=== PATIENT | male | born 2005 | race Caucasian/White ===

== ENCOUNTER 2025-06-26 16:28 | Inpatient (IN) ==
--- NOTE | 2025-06-26 16:43 | Emergency Department Note ---
Impression & Plan Hemoptysis, Cavitary lesion of lung ED Provider Note CHIEF COMPLAINT: Cough, hemoptysis, recent pneumonia HISTORY OF PRESENTING ILLNESS: This 20-year-old male patient presents to the emergency department for evaluation of a continued cough as well as coughing up blood. The patient states that he has been coughing for a while. He was initially diagnosed with the flu a couple weeks ago. The patient was then diagnosed with pneumonia 7 days ago and has been taking doxycycline. The patient states that he was only given a 7 day course of Doxycycline. The patient states that he was getting better on the Doxycycline until yesterday when the cough and mucous got worse again. The patient states that he is now coughing up bright red blood. Initially it was just a small amount in his mucus, but now it is more straight blood when he coughs. The patient states that he feels like the mucous is coming more from his lungs rather than his throat. The patient saw [facility] today because he was having continued coughing as well as blood in his mucus and was referred to the ER for further evaluation. He denies chest pain or SOB other than when he coughs. He states that he has still been pretty tired. He denies any fevers currently. Childhood immunizations are up to date. Two months ago he flew to and from [place] for [address] Denies any personal history of blood clots or bleeding disorders. Denies any family history of blood clots or bleeding disorders. Denies any hormonal medication use. Denies leg/calf pain or swelling. The patient lived in [place] for 15 years before coming back to the [facility] and living in [place]. He then lived in [place] for 2 years prior to coming to [facility] again. The patient denies previous history of TB. He is unsure if he has ever been tested for TB. He is unsure if anyone around him has ever had TB before. REVIEW OF SYSTEMS: See HPI for pertinent positives and pertinent negatives. ALLERGIES: NKDA MEDICATIONS: Finasteride, Minoxidil PAST MEDICAL HISTORY: Hair loss PHYSICAL EXAM: Vital Signs: Vitals are noted on the nurse's note and reviewed by myself. GENERAL: Non toxic in appearance and in no acute distress. SKIN: Capillary reflex less than 2 seconds. HEAD: Normocephalic, atraumatic. EARS: Bilateral external auditory canals clear without tragus tenderness. Bilateral tympanic membranes pearly jernigna without erythema or effusion. No mastoid tenderness bilaterally. EYES: Pupils equal round and reactive to light and accommodation. Conjunctivae without injection, sclerae without icterus. Extraocular movements intact. NOSE: Patent, turbinates inflamed with no discharge. No sinus tenderness. MOUTH: Mucous membranes moist. Airway patent, uvula midline. Pharynx is not erythematous and not edematous without exudate. Pharynx without postnasal drip. There is no blood in the posterior pharynx. No irritation of the posterior pharynx. No evidence for peritonsillar abscess. NECK: Supple without nuchal rigidity. No significant lymphadenopathy. HEART: Regular rate and rhythm without murmurs gallops or rubs. LUNGS: Clear to auscultation bilaterally without wheezes, rales or rhonchi. No accessory muscle use or retractions. ABDOMEN: Positive bowel sounds x 4. Normal tympanic percussion. Soft, nontender to palpation. No masses or hepatosplenomegaly. No guarding, rigidity, or rebound tenderness. No CVA tenderness. No focal RLQ or LLQ tenderness. NEURO: Patient was alert and oriented. DIFFERENTIAL DIAGNOSIS: Differential diagnosis includes PE, viral syndrome, RSV, Influenza, COVID, strep throat, pharyngitis/tonsillitis, mononucleosis, retropharyngeal abscess, peritonsillar abscess, otitis media, otitis externa, sinusitis, bronchitis, pneumonia, TB, fungal infection, as well as other pathologies. ED COURSE AND MEDICAL DECISION MAKING: MEDICATIONS GIVEN: 1 L normal saline solution bolus. MONITOR: Continuous flour distributor: Order was placed for continuous flour distributor. Patient was placed on the flour distributor and continuous pulse ox. Patient was noted to be in normal sinus rhythm at an initial rate of 80 bpm per my interpretation. INTERPRETATION OF LABS: I interpreted the labs with full lab results as below in the lab section of this note. Laboratory results pertinent to the emergent complaint are discussed in the MDM section below. The patient was advised to follow up with their PCP and/or specialist(s) for further outpatient monitoring and management of any abnormal results. INTERPRETATION OF IMAGING: Imaging studies were interpreted by myself and read by radiology as per the imaging section of this note. The patient was advised to follow up with their PCP and/or specialist(s) for further outpatient management of any non-emergent abnormal findings. CTA of the chest with IV contrast shows no evidence for PE. There is a large area of heterogeneous and nodular opacification in the right upper lobe with multiple areas of cavitation present and hilar adenopathy. Pulmonary consultation is suggested to further assess for infectious and inflammatory entities. CHRONIC MEDICAL/SOCIAL CONDITIONS AFFECTING CARE: Recent travel to and from [place] as well as history of residency in [place]. CONSULTATIONS: Dr. Rodriguez of pulmonology. On-call hospitalist. MDM SUMMARY: The patient was seen during a time of extreme volume and extreme acuity. The patient was initially evaluated in a sub-waiting room and then re-evaluated once they were taken back to an exam room. The patient states that he has been coughing for a while, but not sure exactly how long. He states that he was first diagnosed with the flu a couple weeks ago and then diagnosed with pneumonia 1 week ago. He was started on a 7-day course of doxycycline by [facility]. Symptoms initially improved, but now the cough and mucus is getting worse and he is now coughing up bright red blood. The patient did have a recent flight to and from [place] that was approximately [address] The patient has also lived in [place] periodically throughout his life. An IV lock was placed and labs were drawn. The patient was given 1 L normal saline solution bolus. The patient declined any additional medication for his symptoms while in the ER. White blood cell count normal at 8.33. Hemoglobin low at 11.7. Platelet count normal at 325. INR elevated at 1.2, PT elevated 12.1, and APTT elevated at 32. CMP was normal. High-sensitivity troponin normal. CTA of the chest with IV contrast shows no evidence for PE. There is a large area of heterogeneous and nodular opacification in the right upper lobe with multiple areas of cavitation present and hilar adenopathy. Pulmonary consultation is suggested to further assess for infectious and inflammatory entities. As soon as the results of the CT scan were received, I spoke with the charge nurse and the patient was taken to a negative pressure room and isolated. Isolation protocols were followed from that point on. Unfortunately, the patient had been in the Sub-waiting room with another patient. The charge nurse was made aware of the name of the patient in the Sub-waiting room for tracking if the patient does come back positive for TB or other communicable disease that requires contact tracing. I spoke with Dr. Rodriguez of pulmonology. She was concerned for tuberculosis as a cause of his symptoms given the CT scan findings, hemoptysis, and residency/travel in [place]. She recommended a QuantiFERON gold level, sputum acid-fast stain, sputum culture, and respiratory BioFire. She also recommended the patient be admitted by medicine for further workup of other possible etiologies, likely infectious disease consult, and treatment if he is positive for TB. I spoke with the patient's mother via phone at the patient's request. I educated both the patient and his mother about the workup findings and the concern for TB or other infectious etiology of his symptoms. I recommended admission for appropriate management and workup of his symptoms. The patient and his mother were agreeable to admission. I spoke with the on-call hospitalist who agreed to admit the patient for further evaluation and treatment. Please refer to their dictation for further details. The patient's care was transferred in stable condition. DIAGNOSIS: Hemoptysis Multiple areas of cavitation on CT scan Past Med/Surg History Problem List (Updated 06/27/25 @ 01:33 by Summer Hardin PA-C) Cavitary lesion of lung (Acute) Hemoptysis (Acute) Social History Smoking Status: Never smoker Hx Alcohol Use: No Hx Substance Use: No Preferred Language: Grenadian Communication Ability: Effective Plumber Required: No Beliefs That Will Affect Care: None Current Living Situation: Alone Feels Safe at Home: Yes Assistive Devices: None Allergies Allergies Allergy/AdvReac Type Severity Reaction Status Date / Time No Known Allergies Allergy Verified 06/26/25 16:52 Home Meds Home Medications Medication Instructions Recorded Confirmed finasteride 1 mg tablet 0 mg PO DIRECTED 06/26/25 06/26/25 minoxidil 2.5 mg tablet 0 mg PO DIRECTED 06/26/25 06/26/25 Results & Data (ED) Vital Signs Vital Signs - 24 hr 06/26/25 16:36 06/26/25 19:42 06/26/25 19:42 Temperature 36.3 C L Temperature Source Oral Pulse Rate 90 78 Pulse Rate [Right Finger] 78 Respiratory Rate 18 20 Respiratory Effort / Characteristics Non-Labored Spontaneous Non-Labored Spontaneous Respiratory Depth Normal Respiratory Pattern Regular Blood Pressure 110/62 Blood Pressure Mean 78 Pulse Oximetry 96 100 100 Oxygen Delivery Method Room Air Room Air Room Air Sepsis Recent Fever Within 48 Hours No Sepsis New/Unexplained Change in Mental Status N/A Sepsis Action Taken by Nursing No Action Required Laboratory Data 06/26/25 17:09 06/26/25 17:09 Lab Results 06/26/25 Range/Units 17:09 WBC 8.33 (4.8-10.8) K/ul RBC 4.35 L (4.70-6.10) M/uL Hgb 11.7 L (14.0-18.0) g/dl Hct 36.7 L (42.0-52.0) % MCV 84.4 (80.0-100.0) fL MCH 26.9 (25.0-34.0) pg MCHC 31.9 L (32.0-36.0) g/dL RDW Std Deviation 38.0 (36.4-46.3) fL RDW Coeff of Tiffany 12.4 (11.5-14.5) % Plt Count 325 (130-400) K/uL MPV 10.3 (9.4-12.4) fL Immature Gran % (Auto) 0.4 % Neut % (Auto) 64.3 % Lymph % (Auto) 19.4 % Tift % (Auto) 12.7 % Eos % (Auto) 2.8 % Baso % (Auto) 0.4 % Neut # (Auto) 5.36 (1.40-6.50) K/uL Lymph # (Auto) 1.62 (1.20-3.40) K/uL Tift # (Auto) 1.06 H (0.11-0.59) K/uL Eos # (Auto) 0.23 (0.00-0.50) K/uL Baso # (Auto) 0.03 (0.00-0.20) K/uL Immature Gran # (Auto) 0.03 (0.01-0.20) K/uL PT 12.1 H (9.0-12.0) Seconds INR 1.2 H (0.9-1.1) APTT 32 H (21-31) Seconds PTT Ratio 1.2 Sodium 139 (136-145) mmol/L Potassium 3.9 (3.5-5.1) mmol/L Chloride 103 (98-107) mmol/L Carbon Dioxide 30 (21-32) mmol/L Anion Gap 6 (3-11) BUN 9 (6-23) mg/dl Creatinine 0.78 (0.6-1.4) mg/dl Est Cr Clr Drug Dosing 165.9 ml/min eGFR 130.12 BUN/Creatinine Ratio 11.5 (10-20) Glucose 94 (70-99(Fasting)) mg/dl Calcium 9.2 (8.6-10.3) mg/dl Total Bilirubin 0.5 (0.2-1.0) mg/dl AST 21 (13-39) U/L ALT 33 (7-52) U/L Alkaline Phosphatase 88 (34-104) U/L Troponin I High Sens 2.6 (0-20) pg/ml Total Protein 7.7 (6.0-8.3) gm/dl Albumin 3.8 (3.4-5.0) gm/dl Globulin 3.9 (2.5-4.0) gm/dl Albumin/Globulin Ratio 1.0 (0.9-2) Administered Medications Acetaminophen (Acetaminophen 325 Mg Tab) 650 mg PO Q4H PRN PRN Reason: Pain or Fever Stop: 07/27/25 00:01 Last Admin: 06/27/25 00:37 Dose: 650 mg Documented By: LINDA Discontinued Medications Sodium Chloride (Nss) 1,000 mls @ 999 mls/hr IV .Q1H1M ONE Stop: 06/26/25 17:52 Last Infusion: 06/26/25 18:29 Dose: Infused Documented By: Admin: 06/26/25 17:11 Dose: 999 mls/hr Documented By: AURELIA Piperacillin Sod/Tazobactam Sod (Zosyn) 4.5 gm in 100 mls @ 200 mls/hr IV NOW ONE; Protocol Stop: 06/26/25 20:48 Last Infusion: 06/26/25 22:26 Dose: Infused Documented By: Admin: 06/26/25 21:46 Dose: 200 mls/hr Documented By: GENO Vancomycin HCl 1,500 mg/ (Sodium Chloride) 530 mls @ 200 mls/hr IV NOW ONE Stop: 06/26/25 22:57 Last Admin: 06/26/25 22:26 Dose: 200 mls/hr Documented By: GENO Azithromycin (Zithromax) 500 mg in 255 mls @ 127.5 mls/hr IV NOW ONE Stop: 06/26/25 22:21 Last Infusion: 06/27/25 00:39 Dose: Infused Documented By: Admin: 06/26/25 22:26 Dose: 127.5 mls/hr Documented By: GENO Ioversol (Optiray 320 125ml) 119 ml IV ONCE ONE Stop: 06/26/25 18:02 Last Admin: 06/26/25 18:02 Dose: 119 ml Documented By: LARISSA Imaging Data Radiologist's Impression: Chest CTA 06/26/25 16:52 EXAMINATION: CT angio chest PE protocol CLINICAL HISTORY: Cough, hemoptysis, PE risk factors, recent pneumonia PRIORS: None TECHNIQUE: Contiguous axial images were obtained through the chest with the use of intravenous contrast. Sagittal and coronal reformations are supplied. FINDINGS: The pulmonary arteries are normal in size and well opacified. No central or peripheral pulmonary embolism identified. Large area of patchy and nodular opacification present throughout the right upper lung, centrally and extending to the periphery. Multiple areas of cavitation are present, for example image 94, series 3 measuring 2.3 cm. No fluid or soft tissue within the calcification. Scattered air bronchograms noted throughout the opacification. The right lung apex is spared. Right middle and right lower lobes are unremarkable. Left lung is normally expanded. Right hilar adenopathy is present. Heart size is normal. No pleural or pericardial effusion. Trachea and mainstem bronchi are patent. Thyroid normal in size. Upper abdomen unremarkable. No acute osseous abnormality. IMPRESSION: 1. Large area of heterogeneous and nodular opacification in the right upper lobe with multiple areas of cavitation present and hilar adenopathy. Pulmonary consultation is suggested to further assess for infectious and inflammatory entities. 2. No pulmonary embolism. ACT 112: Positive. There are findings on this examination that require communication between the performing entity and the patient following Patient Test Result Information Act ([place] ACT 112) guidelines. Electronically signed by Angelica Hannon 06-26-2025 6:25 PM Discharge Plan Visit Data Chief Complaint: Illness Stated Complaint: COUGHING MUCUS, BLOOD, PNEUMONIA ED Provider: Diego Marrero ED Midlevel Provider: Summer Hardin Discharge Problem: Hemoptysis, Cavitary lesion of lung Patient Disposition: Admitted As Inpatient Condition: Fair Discharge Instructions Interventions: ED Discharge Assessment Last Done: 06/26/25 23:42
[2025-06-26] MEDS: SODIUM CHLORIDE 0.9% 1,000 ML IV ONE (17:11)
[2025-06-26 17:24] LABS: Hematocrit (blood only) 36.7 % (42.0-52.0); Hemoglobin 11.7 g/dl (14.0-18.0); Immature Granulocytes # (auto) 0.03 K/uL (0.01-0.20); Immature Granulocytes % (auto) 0.4 %; Mean Corpuscular Hemoglobin 26.9 pg (25.0-34.0); Mean Corpuscular Volume 84.4 fL (80.0-100.0); Platelet Count 325 K/uL (130-400); RDW Standard Deviation 38.0 fL (36.4-46.3); Red Blood Count 4.35 M/uL (4.70-6.10); White Blood Count 8.33 K/ul (4.8-10.8)
[2025-06-26 17:44] LABS: Alanine Aminotransferase 33.0 U/L (7-52); Albumin Globulin Ratio 1.0 (0.9-2); Albumin Level 3.8 gm/dl (3.4-5.0); Alkaline Phosphatase 88.0 U/L (34-104); Anion Gap 6.0 (3-11); Bilirubin,Total 0.5 mg/dl (0.2-1.0); Blood Urea Nitrogen 9.0 mg/dl (6-23); Calcium 9.2 mg/dl (8.6-10.3); Carbon Dioxide 30.0 mmol/L (21-32); Chloride 103.0 mmol/L (98-107); Creatinine Clr Calc Pharmacy 165.9 ml/min; Globulin 3.9 gm/dl (2.5-4.0); Glucose 94.0 mg/dl (70-99(Fasting)); Potassium 3.9 mmol/L (3.5-5.1); Sodium 139.0 mmol/L (136-145); Total Protein 7.7 gm/dl (6.0-8.3)
[2025-06-26 17:53] LABS: INR 1.2 (0.9-1.1); Partial Thromboplastin Time 32 Seconds (21-31); Prothrombin Time 12.1 Seconds (9.0-12.0)
[2025-06-26] MEDS: OPTIRAY 320 125ml IV ONE (18:02)
--- NOTE | 2025-06-26 18:26 | CT Scan Report ---
EXAMINATION: CT angio chest PE protocol CLINICAL HISTORY: Cough, hemoptysis, PE risk factors, recent pneumonia PRIORS: None TECHNIQUE: Contiguous axial images were obtained through the chest with the use of intravenous contrast. Sagittal and coronal reformations are supplied. FINDINGS: The pulmonary arteries are normal in size and well opacified. No central or peripheral pulmonary embolism identified. Large area of patchy and nodular opacification present throughout the right upper lung, centrally and extending to the periphery. Multiple areas of cavitation are present, for example image 94, series 3 measuring 2.3 cm. No fluid or soft tissue within the calcification. Scattered air bronchograms noted throughout the opacification. The right lung apex is spared. Right middle and right lower lobes are unremarkable. Left lung is normally expanded. Right hilar adenopathy is present. Heart size is normal. No pleural or pericardial effusion. Trachea and mainstem bronchi are patent. Thyroid normal in size. Upper abdomen unremarkable. No acute osseous abnormality. IMPRESSION: 1. Large area of heterogeneous and nodular opacification in the right upper lobe with multiple areas of cavitation present and hilar adenopathy. Pulmonary consultation is suggested to further assess for infectious and inflammatory entities. 2. No pulmonary embolism. ACT 112: Positive. There are findings on this examination that require communication between the performing entity and the patient following Patient Test Result Information Act ([place] ACT 112) guidelines. Electronically signed by Angelica Hannon 06-26-2025 6:25 PM
[2025-06-26] MEDS ORDERED: VANCOMYCIN CONSULT ACTIVE PRN (20:19)
--- NOTE | 2025-06-26 20:26 | History & Physical Report ---
Date of Service June 26, 2025 Assessment & Plan (1) Hemoptysis: Dilcia Kay is a 20 y/o male with no past significant medical history that presented to the ED due to worsening cough and hemoptysis. Patient states having influenza a month ago when the cough started. A week ago he was diagnosed with Pneumonia and got teated with Doxycycline (last dose 06/25) by [facility]. He states yesterday he had an episode of cough that was slight red. Today he states was coughing bright blood. He states having chills some days. Denied any weight loss. He recently travelled to [place] to visit family. He states his roommate had been sick as well, with similar cough on and off. He was living in [place] 2 years before starting in [facility]. No history of TB. He's update with his immunizations. Patient denied been sexually active, denied any smoking, or alcohol use. Chest CT: with nodular opacifications in the right upper lobe with multiples renetta of cavitations and hilar adenopathy. No PE. WBC with no leukocytosis, no left shift. Hgb 11.7. chemistry normal. Liver enzymes without signs of inflammations. Biofire negative. Patient will be admitted for further workup and IV antibiotics Hemoptysis/ Cavitary lesions - Patient with cough for more than a month and hemoptysis. Chills. Recent travel to [place] - CT chest: right lobe nodular opacifications, and cavitations, + hilar adenopathy. No PE - Differential diagnosis include tuberculosis, fungal infection, S. aureus infection - Bio fire negative. no leukocytosis. stable Hgb - Sputum culture ordered with acid fast stain - QuantiFERON gold level ordered -Admit to med telemetry -Isolations: droplets and airborne - Lab in AM - Started on Vancomycin and Zosyn empirically. Azithromycin for atypical coverage - Pulmonary consulted, will place patient npo at midnight in case of a possible bronchoscopy - CBC, PT/INT, BMP in AM DVT prophylaxis: ambulation, low risk Dipos: Med/ Telemetry - isolations precautions History of Present Illness Chief Complaint: Rahul is a 20 y/o male with no past significant medical history that presented to the ED due to worsening cough and hemoptysis. Patient states having influenza a month ago when the cough started. A week ago he was diagnosed with Pneumonia and got teated with Doxycycline (last dose 06/25) by [facility]. He states yesterday he had an episode of cough that was slight red. Today he states was coughing bright blood. He states having chills some days. Denied any weight loss. He recently travelled to [place] to visit family. He states his roommate had been sick as well, with similar cough on and off. He was living in [place] 2 years before starting in [facility]. No history of TB. He's update with his immunizations. Patient denied been sexually active, denied any smoking, or alcohol use. Chest CT: with nodular opacifications in the right upper lobe with multiples renetta of cavitations and hilar adenopathy. No PE. WBC with no leukocytosis, no left shift. Hgb 11.7. chemistry normal. Liver enzymes without signs of inflammations. Biofire negative. Primary Care Provider: [facility] Allergies Allergy/AdvReac Type Severity Reaction Status Date / Time No Known Allergies Allergy Verified 06/26/25 16:52 Home Medications Medication Instructions Recorded Confirmed Type finasteride 1 mg tablet 0 mg PO DIRECTED 06/26/25 06/26/25 History minoxidil 2.5 mg tablet 0 mg PO DIRECTED 06/26/25 06/26/25 History Past Med/Surg History Problem List (Updated 06/27/25 @ 01:33 by Summer Hardin PA-C) Cavitary lesion of lung (Acute) Hemoptysis (Acute) Social History Smoking Status: Never smoker Hx Alcohol Use: No Hx Substance Use: No Preferred Language: Bahraini Communication Ability: Effective Chief Dispatcher Service Required: No Beliefs That Will Affect Care: None Current Living Situation: Alone Feels Safe at Home: Yes Assistive Devices: None Review of Systems Review of Systems: as per hpi Physical Exam Constitutional: well developed and well nourished; no acute distress Eyes: PERRL, conjunctivae normal, anicteric sclerae Respiratory: normal respiratory effort, lungs clear to auscultation Cardiovascular: RRR, no murmur, no edema Gastrointestinal (Abdomen): normal bowel sounds, soft, nontender, no hepatosplenomegaly Skin: no rashes, warm and dry Psychiatric: A+Ox3, euthymic affect Results & Data Results & Data Vital Signs (Past 12 Hours) Vital Signs Temp Pulse Pulse Resp BP Pulse Ox O2 Del Method 06/26/25 19:42 78 20 100 Room Air 06/26/25 19:42 78 100 Room Air 06/26/25 16:36 36.3 C L 90 18 110/62 96 Room Air Code Status & VTE Plan VTE Prophylaxis Plan VTE Prophylaxis will be ordered: Yes Supervising Physician Co-Signing Physician Notes Attending addendum: I have physically seen this patient, have supervised the medical residents activities, and agree with the H&P unless as otherwise noted. Assessment and Plan: The patient is a 20-year-old male with no significant past medical history, who presented to the emergency department after worsening symptoms of pneumonia for which he was treated for doxycycline x 7 days. Today he began to spit up blood, and thus presented to the ED for assessment. He has had intermittent chills. He denied weight loss. He recently traveled to [place] to visit his family, and reports sick contact with his roommate, who has a similar cough on and off. He reports living in [place] for 2 years before starting school at [facility]. He had no history of TB or known exposures to TB. He reports being up-to-date with his immunizations. CTA chest performed in the ED is negative for pulmonary embolism. There are nodular opacifications in the right upper lobe with multiple areas of cavitations and hilar adenopathy. Cavitary lung lesions/hemoptysis- Patient reports cough for 1 month, and hemoptysis for 1 day. He reports chills and fatigue. He reports a recent travel to [place]. CTA chest negative for PE, does note right upper lobe nodular opacifications, cavitations, and hilar adenopathy. Respiratory BioFire testing negative Differential diagnosis including but not limited to: Bacterial pneumonia, tuberculosis, fungal infection such as histoplasmosis, and Staph aureus. Sputum culture sensitivity ordered and pending Sputum for acid-fast stain pending QuantiFERON gold level ordered and pending Respiratory isolation: Airborne and droplet Vancomycin IV per pharmacokinetic monitoring Zosyn 4.5 g IV every 8 hours Azithromycin 500 mg IV daily Consult pulmonology Serial laboratories as noted Resident Activity Tracking Resident Involvement: Resident Care Provided Care Provided: Adult Hospital Medicine
[2025-06-26 20:39] LABS: Chlamydia pneumoniae PCR Not Detected (NotDetected); Coronavirus 229E PCR Not Detected (NotDetected); Coronavirus CoV-2 (COVID19)PCR Not Detected (NotDetected); Coronavirus HKU1 PCR Not Detected (NotDetected); Coronavirus NL63 PCR Not Detected (NotDetected); Coronavirus OC43PCR Not Detected (NotDetected); Human Metapneumovirus PCR Not Detected (NotDetected); Parainfluenza Virus 1 PCR Not Detected (NotDetected); Parainfluenza Virus 2 PCR Not Detected (NotDetected); Parainfluenza Virus 3 PCR Not Detected (NotDetected); Parainfluenza Virus 4 PCR Not Detected (NotDetected); Respiratory Syncytial VirusPCR Not Detected (NotDetected); Rhinovirus/Enterovirus PCR Not Detected (NotDetected)
[2025-06-26] MEDS: PIPERACILLIN/TAZOBACTAM 4.5 GM/100 ML BAG IV ONE (21:46)
[2025-06-26] MEDS: VANCOMYCIN HCL 1,500 MG in SODIUM CHLORIDE 0.9% 500 ML IV ONE (22:26)
[2025-06-26] MEDS: AZITHROMYCIN 500 MG/255 ML BAG IV ONE (22:26)
[2025-06-27] MEDS ORDERED: ONDANSETRON INJ 2 MG/ML 2 ML VIAL IV PRN (00:02)
[2025-06-27] MEDS ORDERED: VANCOMYCIN CONSULT ACTIVE PRN (00:02)
[2025-06-27] MEDS: ACETAMINOPHEN 325 MG TAB PO PRN (00:37)
--- NOTE | 2025-06-27 03:06 | Billing Data ---
Date of Service June 27, 2025 Coding Level of Care Code 96924 INT INP/OBS CARE
[2025-06-27] MEDS: PIPERACILLIN/TAZOBACTAM 4.5 GM/100 ML BAG IV SCH (04:59)
[2025-06-27] MEDS: VANCOMYCIN HCL 1,250 MG in SODIUM CHLORIDE 0.9% 250 ML IV SCH (04:59)
--- NOTE | 2025-06-27 07:16 | Pulmonary Consultation ---
Date of Consultation June 27, 2025 Assessment & Plan (1) Cavitary lesion of lung: (2) Hemoptysis: (3) Tuberculosis: Plan Patient CT imaging and travel history is concerning for tuberculosis. The patient was in [place] for 2 years, there is a high burden of tuberculosis within the region. Estimated 173 cases per 100,000 population per year. There is multidrug-resistant and extensively drug-resistant strains frequently detected. TB Gold is now positive. Acid-fast Cultures are pending. Given the clinical picture we will go ahead and initiate treatment with isoniazid, rifampin, pyrazinamide and ethambutol. ID has been consulted. Appreciate assistance with case. Airborne precautions. Health apartment will need to be notified. Will repeat acid-fast cultures tomorrow and Wednesday. Monitor hemoptysis, not having a significant amount at this time. If this worsens then we can initiate TXA nebulizers. If patient has large-volume hemoptysis please position him right lateral decubitus and call physician immediately. Thank you for this consultation. I will follow along with you. History of Present Illness Reason for Consultation: Cavitary lesion on CT Requesting Physician: Nicholas Castro Attending Physician: Nicholas Castro History of Present Illness Patient is a 20-year-old male without significant medical history. The patient presented to the emergency department for evaluation of worsening cough and hemoptysis. The patient endorses a history of influenza approximately 1 month ago, it was at that time that he started noticing a cough. He was diagnosed and treated for pneumonia with doxycycline and completed his last dose on . The patient started having hemoptysis on 06/25/2025 with small amounts of red-colored sputum. CT imaging was obtained in the emergency department which showed right upper lobe nodular opacifications with multiple areas of cavitation, hilar adenopathy was appreciated. No PE was seen. Viral PCR was negative. WBCs were not significantly elevated on CBC. No significant peripheral eosinophilia. INR was 1.2. Chemistry was grossly within normal limits. MRSA nares was negative. No LFT elevation. Creatinine was normal. TB QuantiFERON was ordered and is pending. Sputum culture was also ordered with acid-fast which is pending. The patient was started on azithromycin, Zosyn, vancomycin. Pulmonary was consulted for further evaluation. The patient states that he recently moved back to the [place] to attend college at [employer]. He had been living in [place] for the past 2 years. He is originally from the [facility] however has spent a large portion of his life in [place]. 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 He states that he has had a cough for a while, dating back multiple months. He did not notice that he was acutely ill until the past couple weeks and did not start having hemoptysis until very recently. He normally is active and does not have any underlying lung disease. He does not take any immunosuppressive medications. He is not aware of any contacts for infected individuals with TB. He also endorses that his roommate has been sick, he is also coughing a lot. He is currently living in the dorms at [employer] [facility]. He has noticed some fevers and sweats recently. Has not had any weight loss. He is a lifetime non-smoker and does not vape. He has never use illicit drugs. On examination he does not have any wheezing, some coarse breath sounds appreciated in the right upper lobe. Allergies Allergy/AdvReac Type Severity Reaction Status Date / Time No Known Allergies Allergy Verified 06/26/25 16:52 Home Medications Medication Instructions Recorded Confirmed Type finasteride 1 mg tablet 0 mg PO DIRECTED 06/26/25 06/26/25 History minoxidil 2.5 mg tablet 0 mg PO DIRECTED 06/26/25 06/26/25 History Patient History Social History Smoking Status: Never smoker Hx Alcohol Use: No Hx Substance Use: No Preferred Language: Albanian Communication Ability: Effective Sheriff Required: No Beliefs That Will Affect Care: None Current Living Situation: Alone Feels Safe at Home: Yes Assistive Devices: None Review of Systems Review of Systems: A 12 point review of systems was obtained in detail. Negative except as noted in HPI. Physical Exam Physical Exam: Physical examination: General: Well-appearing, well-nourished and not in acute distress. HEENT: Normocephalic, atraumatic. Extraocular movements intact. Sclera are nonicteric. No JVD appreciated. Skin: Warm and dry. No rashes appreciated. No jaundice appreciated. Cardiovascular: Heart is a regular rate and rhythm, no murmurs appreciated on my exam. No significant lower extremity edema. Lungs: On room air, coarse breath sounds in the right upper lobe, no wheezing appreciated. No crackles. Nontachypneic. Resting comfortably on room air. Abdomen: Nondistended, nontender to palpation. Musculoskeletal: Normal muscle mass and tone. No gross joint deformity abnormalities. No effusions appreciated. Neurologic: Awake and alert, oriented. CN II through XII are grossly intact. Speech is fluent. Nonfocal exam. Psychiatric: Appropriate cooperative during my exam. Results & Data Results & Data Vital Signs (Past 12 Hours) Vital Signs Temp Pulse Pulse Resp BP Pulse Ox O2 Del Method 06/27/25 04:00 37.8 C H 98 H 20 125/68 98 Room Air 06/27/25 00:30 82 06/27/25 00:30 Room Air 06/26/25 23:09 78 17 123/71 99 Room Air 06/26/25 21:00 81 16 98 Room Air 06/26/25 19:42 78 20 100 Room Air 06/26/25 19:42 78 100 Room Air Laboratory Results No significant leukocytosis, no peripheral eosinophilia. Viral PCR is negative. MRSA nares is negative. TB Gold is positive. Galactomannan, crypto, histo and Coccidioides are pending. Diagnostic Findings CT imaging was independently reviewed by myself. Nodular densities and opacifications in the right upper lobe with some cavitary lesions appreciated. Adenopathy also appreciated. PG Care Time/CCT Total # of Minutes Spent Total Time Spent with Patient: Total time spent is greater than 50% in coordination of care (as documented) at patient's floor/unit and/or counseling patient: [place] [address] IN/OBS CONSULT LVL 4,60M Patient Type New History Comprehensive Exam Comprehensive Medical Decision Making Moderate Complexity Diagnoses Cavitary lesion of lung J98.4 Hemoptysis R04.2 Tuberculosis A15.9
--- NOTE | 2025-06-27 08:25 | Hospitalist Progress Note ---
Date of Service June 27, 2025 Assessment & Plan (1) Hemoptysis: (2) Cavitary lesion of lung: (3) Tuberculosis: Dilcia Kay is a 20 y/o male with no past significant medical history that presented to the ED due to worsening cough and hemoptysis. Patient states having influenza a month ago when the cough started. A week ago he was diagnosed with Pneumonia and got teated with Doxycycline (last dose 06/25) by [facility]. He states yesterday he had an episode of cough that was slight red. Today he states was coughing bright blood. He states having chills some days. Denied any weight loss. He recently travelled to [place] to visit family. He states his roommate had been sick as well, with similar cough on and off. He was living in [place] 2 years before starting in [facility]. No history of TB. He's update with his immunizations. Patient denied been sexually active, denied any smoking, or alcohol use. Chest CT: with nodular opacifications in the right upper lobe with multiples renetta of cavitations and hilar adenopathy. No PE. WBC with no leukocytosis, no left shift. Hgb 11.7. chemistry normal. Liver enzymes without signs of inflammations. Biofire negative. Patient will be admitted for further workup and IV antibiotics Hemoptysis/ Cavitary lesions - Patient with cough for more than a month and hemoptysis. Chills. Recent travel to [place] - CT chest: right lobe nodular opacifications, and cavitations, + hilar adenopathy. No PE - Differential diagnosis include tuberculosis, fungal infection, S. aureus infection - Bio fire negative. no leukocytosis. stable Hgb - Sputum culture ordered with acid fast stain - QuantiFERON gold test ordered and positive: Does not differentiate between past, latent, and active TB or other fungal causes - Isolations: droplets and airborne - Vancomycin and Zosyn d/c for RIPE therapy, hospital will f/u with [facility] to determine d/c and isolation precautions - Pulmonology and ID consulted recs as follows - Avoid bronchoscopy for now due to risk of potential active TB infection contamination/spread - Acid fast sputum and culture stains Q8H x3 ordered, will await results stains will continue to be monitored for 6 weeks - TB PCR sputum sent and pending - Coccidioides, Histoplasma, Cryptococcal, aspergillus labs sent - CBC, BMP QAM DVT prophylaxis: ambulation, low risk Dipos: Med/ Telemetry - isolations precautions Admission and Anticipated Discharge Date Admission Date: June 26, 2025 Supervising Physician Co-Signing Physician Notes Attending addendum: I have physically seen this patient, have supervised the medical residents activities, and agree with the note above unless as otherwise noted. Assessment and Plan: The patient is a 20-year-old male with no significant past medical history. He recently traveled to [place] to visit his family, and reports sick contact with his roommate, who has a similar cough on and off. His roommate traveled to [place]. He reports living in [place] for 2 years before starting school at [facility]. He had no history of TB or known exposures to TB. He reports being up-to-date with his immunizations. CTA chest performed in the ED is negative for pulmonary embolism. There are nodular opacifications in the right upper lobe with multiple areas of cavitations and hilar adenopathy. Quantiferon Gold is not positive. Very likely this is TB. COnsulted ID. Obtained AFB cultures. Placed on empiric coverage for TB. Cavitary lung lesions/hemoptysis- As above. Consult pulmonology Serial laboratories as noted Subjective Patient is seen resting comfortably this AM. Patient calls mom and uncle who is a physician and case is reviewed with family. Patient understands that recent symptoms are likely related to a fungal vs TB infection due to cavitary lesions found in his RUL. Patient reports he hasn't had any episodes of hemoptysis today but does endorse fevers, chills, and night sweats for the past few weeks and hemoptysis yesterday. Patient also reports that he has a roommate that also was coughing blood approximately 1 month ago, but patient reports that these symptoms improved. Patient did develop a fever earlier in the day at 38.1 but this has resolved and he is hemodynamically stable. Physical Exam Physical Exam: General: patient resting comfortably, NAD, non-toxic in appearance, answers questions appropriately. Skin: warm, dry, intact HEENT: NC/AT, anicteric sclera, conjunctiva without injection, moist mucus membranes. Heart: +S1/S2, regular, no m/r/g Lungs: equal air entry bilaterally, no rales/rhonchi/wheezes Abd: +BS, soft, NT/ND Ext: warm, no clubbing/cyanosis or edema. Neuro: nonfocal, speech intact, no facial droop, moving all extremities. Results & Data Results & Data Vital Signs (Past 12 Hours) Vital Signs Temp Pulse Pulse Resp BP Pulse Ox O2 Del Method 06/27/25 07:43 38.1 C H 100 H 24 100/48 L 96 Room Air 06/27/25 07:18 102 H 06/27/25 04:00 37.8 C H 98 H 20 125/68 98 Room Air 06/27/25 00:30 82 06/27/25 00:30 Room Air 06/26/25 23:09 78 17 123/71 99 Room Air 06/26/25 21:00 81 16 98 Room Air Resident Activity Tracking Resident Involvement: Resident Care Provided Care Provided: Adult Hospital Medicine
[2025-06-27] MEDS ORDERED: AZITHROMYCIN 250 MG TAB PO SCH (09:00)
[2025-06-27] MEDS: PYRAZINAMIDE 500 MG TABLET PO SCH (09:05)
[2025-06-27] MEDS: ETHAMBUTOL HCL 400 MG TAB PO SCH (09:05)
[2025-06-27] MEDS: ISONIAZID 100 MG TAB PO SCH (09:05)
[2025-06-27 10:48] LABS: Hematocrit (blood only) 34.1 % (42.0-52.0); Hemoglobin 11.2 g/dl (14.0-18.0); Immature Granulocytes # (auto) 0.03 K/uL (0.01-0.20); Immature Granulocytes % (auto) 0.3 %; Mean Corpuscular Hemoglobin 26.7 pg (25.0-34.0); Mean Corpuscular Volume 81.2 fL (80.0-100.0); Platelet Count 266 K/uL (130-400); RDW Standard Deviation 37.1 fL (36.4-46.3); Red Blood Count 4.20 M/uL (4.70-6.10); White Blood Count 9.27 K/ul (4.8-10.8)
[2025-06-27 11:02] LABS: Anion Gap 5.0 (3-11); Blood Urea Nitrogen 8.0 mg/dl (6-23); Calcium 8.8 mg/dl (8.6-10.3); Carbon Dioxide 25.0 mmol/L (21-32); Chloride 103.0 mmol/L (98-107); Creatinine Clr Calc Pharmacy 157.2 ml/min; Glucose 103.0 mg/dl (70-99(Fasting)); Potassium 3.7 mmol/L (3.5-5.1); Sodium 133.0 mmol/L (136-145)
[2025-06-27 11:12] LABS: INR 1.3 (0.9-1.1); Prothrombin Time 13.1 Seconds (9.0-12.0)
--- NOTE | 2025-06-27 11:39 | Infectious Disease Consult ---
Date of Consultation June 27, 2025 Assessment & Plan (1) Cavitary lesion of lung: (2) Hemoptysis: Plan This is a 20-year-old male college student with no significant past medical history who presents to the ED on 06/26 with hemoptysis. He was born in [place] and lived there for 15 years. He then came to the and lived in [place]. He went back to [place] and has been there for the last 2 years. While there he lived in an urban area in [place]. 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 He recently came back to the for college. He is a business student. He does not work with animals or do any research with chemicals. He is not sexually active. He has had a cough since about March 2025. In the last few days his cough has become productive with hemoptysis. He has developed night sweats.Since returning to the , he he has lost approximately 8 pounds. He feels that his weight loss is from not likely the food here. He used to play soccer about 5 times per week but now is less active secondary to fatigue. He denies any nausea, vomiting, body aches. .He denies contact with anyone with known tuberculosis. He denies history of any fungal infections. He does not know if he was ever tested for exposure to TB prior to starting college. He denies any alcohol use or illicit drugs. His college roommate also has a cough and has developed hemoptysis. He denies any animal bites, mosquito bites. On admission he is febrile with a Tmax of 38.1. He is satting 98% on room air. Labs: WBC 8.33, LFTs within normal limits. MRSA nasal screen negative. Respiratory viral panel negative. QuantiFERON gold positive. CT chest angio shows a large area of heterogeneous and nodular opacifications in the right upper lobe with multiple areas of cavitation present and hilar adenopathy. No pulmonary embolism. He was evaluated by pulmonary and empirically started on RIPE therapy for possible active pulmonary tuberculosis. 1 set of sputum cultures for AFB smear and culture obtained and pending. He is on on airborne isolation. Infectious disease consulted for possible Mycobacterium tuberculosis. On my initial evaluation, he reports night sweats and hemoptysis. Confirms on going cough since at least the end of March 2025. On exam, he is clammy. BS decreased at bases and has a small palpable lymph node of the left neck. Microbiology: 06/26 QuantiFERON gold positive 06/26 RVP negative 06/26 MRSA nares negative 06/27 bacterial respiratory culture NGTD 06/27 sputum culture AFB smear/culture in process Anti-infectives Rifampin 06/27current Isoniazid 06/27current 06/27current 15current Pyrazinamide Ethambutol # Hemoptysis # Ongoing cough for > 2 months # Right upper lobe opacification with multiple cavitations # Hilar lymphadenopathy Discussion: This is a 20-year-old male college student initially from [place] who presents with hemoptysis and ~ 2-month history of cough and a few day history of night sweats. He reports an 8 pound weight loss in the last 2 months. He reports sick contact with his roommate who has a cough and hemoptysis Patient's ough predates his roommates cough. He denies any known exposure to TB. He is unclear if he has ever been tested for TB exposures prior to college. Differential diagnosis for cavitary lesion within hemoptysis includes: Mycobacterial infections including tuberculosis and nontuberculosis Mycobacterium, bacterial infection with Staph aureus, Klebsiella pneumonia or pseudomonas aeruginosa, nocardia infections, fungal infections including invasive pulmonary aspergillosis, Coccidioides immitis, Blastomyces and histoplasma. He has risk factors for Mycobacterium TB as he is from [place] w/ night sweats an unintentional weight loss.. He has a positive QuantiFERON gold which only tells us that he has been exposed to Mycobacterium tuberculosis in the past. A QuantiFERON gold does not rule in or rule out active tuberculosis. The only way to rule out ACtive pulmonary tuberculosis is with respiratory culture data and/or Mycobacterium PCR. In addition to living in [place] he greene lived in [place]. Living in these areas put him at risk for fungal exposures to histoplasma and Coccidioides which can also lead to cavitary pneumonia with hemoptysis . Recommendations Continue airborne isolation Continue RIPE therapy started by pulmonology for possible Mycobacterium TB Will add vitamin B6 (pyridoxine) 50 mg p.o. daily while on RIPE to prevent side effects from isoniazid Follow-up bacterial sputum cultures -Follow up AFB smear/sputum cultures x 3 (total). This can be every 8 hours or daily. Monitor LFTs on RIPE Ordered sputum Mycobacterium PCR (send out) Ordered Aspergillus antigen Ordered Histoplasma antibodies Ordered cryptococcus serum antigen Ordered Coccidioides antibody _Although no positive AFB to date, would notify [facility] as he lives in a college dorm and his room mate has similar respiratory symptoms. Recommendations communicated to house staff. Thank you for this consult. ID will continue to follow. David Carroll MD, MPH Infectious Disease [facility], [facility] Call [phone] with questions Consultation Information Consultation was provided via telemedicine using two-way real-time interactive telecommunication between the patient and the telemedicine provider. For the duration of the visit, the provider was performing the assessment from a different facility than the patient. This includesuse of bluetooth stethoscope forauscultationperformed by the telepresenter that the telemedicine provider can hear if described in the physical exam. [facility] [place] contact information: Please call [facility] Call Center . (Phone Number For Physician Use Only) After establishing a telemedicine visit, patient was: Patient was verified with two unique identifiers and Gave permission to continue telehealth session Time Spent with Patient: Initial => 75 min History of Present Illness Reason for Consultation: Possible TB Requesting Physician: Paz Rodriguez MD Attending Physician: Nicholas Castro History of Present Illness This is a 20-year-old male college student with no significant past medical history who presents to the ED on 06/26 with hemoptysis. He was born in [place] and lived there for 15 years. He then came to the and lived in [place]. He went back to [place] and has been there for the last 2 years. While there he lived in an urban area in [place]. 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 He recently came back to the [place] for college. He is a business student. He does not work with animals or do any research with chemicals. He is not sexually active. He has had a cough since about March 2025. In the last few days his cough has become productive with hemoptysis. He has developed night sweats.[place] returning to the [place] , he he has lost approximately 8 pounds. He feels that his weight loss is from not likely the food here. He used to play soccer about 5 times per week but now is less active secondary to fatigue. He denies any nausea, vomiting, body aches. .He denies contact with anyone with known tuberculosis. He denies history of any fungal infections. He does not know if he was ever tested for exposure to TB prior to starting college. He denies any alcohol use or illicit drugs. His college roommate also has a cough and has developed hemoptysis. He denies any animal bites, mosquito bites. On admission he is febrile with a Tmax of 38.1. He is satting 98% on room air. Labs: WBC 8.33, LFTs within normal limits. MRSA nasal screen negative. Respiratory viral panel negative. QuantiFERON gold positive. CT chest angio shows a large area of heterogeneous and nodular opacifications in the right upper lobe with multiple areas of cavitation present and hilar adenopathy. No pulmonary embolism. He was evaluated by pulmonary and empirically started on RIPE therapy for possible active pulmonary tuberculosis. 1 set of sputum cultures for AFB smear and culture obtained and pending. He is on on airborne isolation. Infectious disease consulted for possible Mycobacterium tuberculosis. On my initial evaluation, he reports night sweats and hemoptysis. Confirms on going cough since at least the end of March 2025. On exam, he is clammy. BS decreased at bases and has a small palpable lymph node of the left neck. Allergies Allergy/AdvReac Type Severity Reaction Status Date / Time No Known Allergies Allergy Verified 06/26/25 16:52 Home Medications Medication Instructions Recorded Confirmed Type finasteride 1 mg tablet 0 mg PO DIRECTED 06/26/25 06/26/25 History minoxidil 2.5 mg tablet 0 mg PO DIRECTED 06/26/25 06/26/25 History Patient History Social History Smoking Status: Never smoker Hx Alcohol Use: No Hx Substance Use: No Preferred Language: Macedonian Communication Ability: Effective Elevator Worker Required: No Beliefs That Will Affect Care: None Current Living Situation: Alone Feels Safe at Home: Yes Assistive Devices: None Review of System A 10 point ROS obtained. Pertinent positive as per HPI Physical Exam Physical Exam: Gen- NAD,clammy HEENT- Anicteric sclera, EOMI. AT/NC Neck- left cervical adenopathy ( small) Lung- Non labored breathing. Decreased BS at bases. On RA Abd- soft, NT, ND Ext- No edema Neuro- AAO times 3 Psych- Cooperative, Normal mood. Results & Data Vital Signs (Past 12 Hours) Vital Signs Temp Pulse Pulse Resp BP Pulse Ox O2 Del Method 06/27/25 10:09 37.8 C H 115 H 18 132/80 97 Room Air 06/27/25 09:00 Room Air 06/27/25 07:43 38.1 C H 100 H 24 100/48 L 96 Room Air 06/27/25 07:18 102 H 06/27/25 04:00 37.8 C H 98 H 20 125/68 98 Room Air 06/27/25 00:30 82 06/27/25 00:30 Room Air Laboratory Results 06/27/25 01:00 Gram Stain - Final Sputum, Expectorated Sputum Culture - Pending 06/27/25 01:00 Acid Fast Bacilli Smear - Pending Sputum, Expectorated Acid Fast Bacilli Culture - Pending 06/27/25 06/26/25 06/26/25 10:35 Unknown 22:31 WBC 9.27 RBC 4.20 L Hgb 11.2 L Hct 34.1 L MCV 81.2 MCH 26.7 MCHC 32.8 RDW Std Deviation 37.1 RDW Coeff of Tiffany 12.6 Plt Count 266 MPV 10.2 Immature Gran % (Auto) 0.3 Neut % (Auto) 77.8 Lymph % (Auto) 12.8 [place] % (Auto) 8.0 Eos % (Auto) 0.9 Baso % (Auto) 0.2 Neut # (Auto) 7.21 H Lymph # (Auto) 1.19 L [place] # (Auto) 0.74 H Eos # (Auto) 0.08 Baso # (Auto) 0.02 Immature Gran # (Auto) 0.03 PT 13.1 H INR 1.3 H APTT PTT Ratio Sodium 133 L Potassium 3.7 Chloride 103 Carbon Dioxide 25 Anion Gap 5 BUN 8 Creatinine 0.84 Est Cr Clr Drug Dosing 157.2 eGFR 127.24 BUN/Creatinine Ratio 9.5 L Glucose 103 H Calcium 8.8 Total Bilirubin AST ALT Alkaline Phosphatase Troponin I High Sens Total Protein Albumin Globulin Albumin/Globulin Ratio Nasal Screen MRSA (PCR) Negative Adenovirus (PCR) Not Detected B. pertussis DNA (PCR) Not Detected B.parapertussis DNA PCR Not Detected C. pneumoniae DNA (PCR) Not Detected Coronavirus OC43 (PCR) Not Detected Coronavirus HKU1 (PCR) Not Detected Coronavirus 229E (PCR) Not Detected SARS-CoV-2 (PCR) Not Detected Coronavirus NL63 (PCR) Not Detected Human Metapneumovir PCR Not Detected Influenza Type A (PCR) Not Detected Influenza Type B (PCR) Not Detected M. pneumoniae (PCR) Not Detected Parainfluenza 1 (PCR) Not Detected Parainfluenza 2 (PCR) Not Detected Parainfluenza 3 (PCR) Not Detected Parainfluenza 4 (PCR) Not Detected RSV (PCR) Not Detected Entero/Rhino (PCR) Not Detected 06/26/25 17:09 WBC 8.33 RBC 4.35 L Hgb 11.7 L Hct 36.7 L MCV 84.4 MCH 26.9 MCHC 31.9 L RDW Std Deviation 38.0 RDW Coeff of Tiffany 12.4 Plt Count 325 MPV 10.3 Immature Gran % (Auto) 0.4 Neut % (Auto) 64.3 Lymph % (Auto) 19.4 [place] % (Auto) 12.7 Eos % (Auto) 2.8 Baso % (Auto) 0.4 Neut # (Auto) 5.36 Lymph # (Auto) 1.62 [place] # (Auto) 1.06 H Eos # (Auto) 0.23 Baso # (Auto) 0.03 Immature Gran # (Auto) 0.03 PT 12.1 H INR 1.2 H APTT 32 H PTT Ratio 1.2 Sodium 139 Potassium 3.9 Chloride 103 Carbon Dioxide 30 Anion Gap 6 BUN 9 Creatinine 0.78 Est Cr Clr Drug Dosing 165.9 eGFR 130.12 BUN/Creatinine Ratio 11.5 Glucose 94 Calcium 9.2 Total Bilirubin 0.5 AST 21 ALT 33 Alkaline Phosphatase 88 Troponin I High Sens 2.6 Total Protein 7.7 Albumin 3.8 Globulin 3.9 Albumin/Globulin Ratio 1.0 Nasal Screen MRSA (PCR) Adenovirus (PCR) B. pertussis DNA (PCR) B.parapertussis DNA PCR C. pneumoniae DNA (PCR) Coronavirus OC43 (PCR) Coronavirus HKU1 (PCR) Coronavirus 229E (PCR) SARS-CoV-2 (PCR) Coronavirus NL63 (PCR) Human Metapneumovir PCR Influenza Type A (PCR) Influenza Type B (PCR) M. pneumoniae (PCR) Parainfluenza 1 (PCR) Parainfluenza 2 (PCR) Parainfluenza 3 (PCR) Parainfluenza 4 (PCR) RSV (PCR) Entero/Rhino (PCR) Diagnostic Findings Chest CTA 06/26/25 16:52 EXAMINATION: CT angio chest PE protocol CLINICAL HISTORY: Cough, hemoptysis, PE risk factors, recent pneumonia PRIORS: None TECHNIQUE: Contiguous axial images were obtained through the chest with the use of intravenous contrast. Sagittal and coronal reformations are supplied. FINDINGS: The pulmonary arteries are normal in size and well opacified. No central or peripheral pulmonary embolism identified. Large area of patchy and nodular opacification present throughout the right upper lung, centrally and extending to the periphery. Multiple areas of cavitation are present, for example image 94, series 3 measuring 2.3 cm. No fluid or soft tissue within the calcification. Scattered air bronchograms noted throughout the opacification. The right lung apex is spared. Right middle and right lower lobes are unremarkable. Left lung is normally expanded. Right hilar adenopathy is present. Heart size is normal. No pleural or pericardial effusion. Trachea and mainstem bronchi are patent. Thyroid normal in size. Upper abdomen unremarkable. No acute osseous abnormality. IMPRESSION: 1. Large area of heterogeneous and nodular opacification in the right upper lobe with multiple areas of cavitation present and hilar adenopathy. Pulmonary consultation is suggested to further assess for infectious and inflammatory entities. 2. No pulmonary embolism. ACT 112: Positive. There are findings on this examination that require communication between the performing entity and the patient following Patient Test Result Information Act ([place] ACT 112) guidelines. Electronically signed by Angelica Hannon 06-26-2025 6:25 PM Medications Administered Home Medications Medication Instructions Recorded Confirmed Last Taken finasteride 1 mg tablet 0 mg PO DIRECTED 06/26/25 06/26/25 Unknown minoxidil 2.5 mg tablet 0 mg PO DIRECTED 06/26/25 06/26/25 Unknown Active Medications Generic Name Dose Route Start Last Admin Trade Name Freq PRN Reason Stop Dose Admin Acetaminophen 650 mg 06/27/25 00:02 06/27/25 09:05 Acetaminophen 325 Mg Tab PO 07/27/25 00:01 650 mg Q4H PRN Administration Pain or Fever Ethambutol HCl 1,600 mg 06/27/25 09:00 06/27/25 09:05 Ethambutol Hcl 400 Mg Tab PO 07/27/25 08:59 1,600 mg DAILY SKY Administration Isoniazid 300 mg 06/27/25 09:00 06/27/25 09:05 Isoniazid 100 Mg Tab PO 07/27/25 08:59 300 mg QAM SKY Administration Pyrazinamide 2,000 mg 06/27/25 09:00 06/27/25 09:05 Pyrazinamide 500 Mg Tablet PO 07/27/25 08:59 2,000 mg QAM SKY Administration Rifampin 600 mg 06/27/25 09:00 06/27/25 09:05 Rifampin 300 Mg Capsule PO 07/27/25 08:59 600 mg QAM SKY Administration
[2025-06-27 13:28] LABS: Quantiferon TB1 7.040 IU/mL; Quantiferon TB2 4.430 IU/mL
[2025-06-27] MEDS: PYRIDOXINE HCL 50 MG TAB PO SCH (21:19)
[2025-06-28 06:24] LABS: Hematocrit (blood only) 36.3 % (42.0-52.0); Hemoglobin 12.3 g/dl (14.0-18.0); Immature Granulocytes # (auto) 0.04 K/uL (0.01-0.20); Immature Granulocytes % (auto) 0.5 %; Mean Corpuscular Hemoglobin 27.6 pg (25.0-34.0); Mean Corpuscular Volume 81.6 fL (80.0-100.0); Platelet Count 296 K/uL (130-400); RDW Standard Deviation 36.9 fL (36.4-46.3); Red Blood Count 4.45 M/uL (4.70-6.10); White Blood Count 8.31 K/ul (4.8-10.8)
[2025-06-28 06:43] LABS: Anion Gap 10.0 (3-11); Blood Urea Nitrogen 9.0 mg/dl (6-23); Calcium 9.0 mg/dl (8.6-10.3); Carbon Dioxide 26.0 mmol/L (21-32); Chloride 100.0 mmol/L (98-107); Creatinine Clr Calc Pharmacy 140.5 ml/min; Glucose 105.0 mg/dl (70-99(Fasting)); Potassium 4.0 mmol/L (3.5-5.1); Sodium 136.0 mmol/L (136-145)
--- NOTE | 2025-06-28 11:50 | Pulmonology Progress Note ---
Date of Service June 28, 2025 Assessment & Plan (1) Cavitary lesion of lung: (2) Hemoptysis: (3) Tuberculosis: Plan Patient CT imaging and travel history is concerning for tuberculosis. The patient was in [place] for 2 years, there is a high burden of tuberculosis within the region. Estimated 173 cases per 100,000 population per year. There is multidrug-resistant and extensively drug-resistant strains frequently detected. TB Gold is now positive. Acid-fast Cultures are pending. Will need 3 cultures. We empirically initiated RIPE therapy for presumed TB on 06/27/2025 with isoniazid, rifampin, pyrazinamide and ethambutol. ID has been consulted. Appreciate assistance with case. They have added vitamin B6 (pyridoxine) to minimize the side effects from isoniazid. Have sent sputum Mycobacterium PCR, Aspergillus, histo, cryptococcus and coccidiodes. Airborne precautions. Please ensure that health department is aware and house staff is aware. Patient lives in the dorms at [facility] and it sounds as though his roommate is also very sick with similar symptoms. Monitor LFTs. Monitor hemoptysis, not having a significant amount at this time. If this worsens then we can initiate TXA nebulizers. If patient has large-volume hemoptysis please position him right lateral decubitus and call physician immediately. Thank you for this consultation. I will follow along with you. Admission and Anticipated Discharge Date Admission Date: June 26, 2025 Subjective Patient was examined today during bedside rounds. He is feeling okay. He is not having any hemoptysis. Still having a cough though. Still having sweats and fevers. He says that his mom is going to arrive today and he would like it if I talked with her. Review of Systems Review of Systems: A 12 point review of systems was obtained in detail. Negative except as noted in HPI. Physical Exam Physical Exam: Physical examination: General: Well-appearing, well-nourished and not in acute distress. HEENT: Normocephalic, atraumatic. Extraocular movements intact. Sclera are nonicteric. No JVD appreciated. Skin: Warm and dry. No rashes appreciated. No jaundice appreciated. Cardiovascular: Heart is a regular rate and rhythm, no murmurs appreciated on my exam. No significant lower extremity edema. Lungs: On room air, coarse breath sounds in the right upper lobe, no wheezing appreciated. No crackles. Nontachypneic. Resting comfortably on room air. Abdomen: Nondistended, nontender to palpation. Musculoskeletal: Normal muscle mass and tone. No gross joint deformity abnormalities. No effusions appreciated. Neurologic: Awake and alert, oriented. CN II through XII are grossly intact. Speech is fluent. Nonfocal exam. Psychiatric: Appropriate cooperative during my exam. Results & Data Results & Data Vital Signs (Past 12 Hours) Vital Signs Temp Pulse Pulse Resp BP Pulse Ox O2 Del Method 06/28/25 11:43 89 21 96/57 L 96 Room Air 06/28/25 09:47 107 H 06/28/25 08:00 37.1 C 104 H 17 114/73 97 Room Air 06/28/25 04:00 37.2 C 105 H 20 126/65 98 Room Air PG Care Time/CCT Total # of Minutes Spent Total Time Spent with Patient: Total time spent is greater than 50% in coordination of care (as documented) at patient's floor/unit and/or counseling patient: Coding Level of Care Code 11619 SUB INP/OBS CARE 2/35MIN Diagnoses Cavitary lesion of lung J98.4 Hemoptysis R04.2 Tuberculosis A15.9
--- NOTE | 2025-06-28 12:58 | Infectious Disease Progress Nt ---
Date of Service June 28, 2025 Assessment & Plan (1) Cavitary lesion of lung: (2) Hemoptysis: Plan This is a 20-year-old male college student with no significant past medical history who presents to the ED on 06/26 with hemoptysis. He was born in [place] and lived there for 15 years. He then came to the and lived in [place]. He went back to [place] and has been there for the last 2 years. While there he lived in an urban area in [place]. 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 He recently came back to the for college. He is a business student. He does not work with animals or do any research with chemicals. He is not sexually active. He has had a cough since about March 2025. In the last few days his cough has become productive with hemoptysis. He has developed night sweats.Since returning to the , he he has lost approximately 8 pounds. He feels that his weight loss is from not likely the food here. He used to play soccer about 5 times per week but now is less active secondary to fatigue. He denies any nausea, vomiting, body aches. .He denies contact with anyone with known tuberculosis. He denies history of any fungal infections. He does not know if he was ever tested for exposure to TB prior to starting college. He denies any alcohol use or illicit drugs. His college roommate also has a cough and has developed hemoptysis. He denies any animal bites, mosquito bites. On admission he is febrile with a Tmax of 38.1. He is satting 98% on room air. Labs: WBC 8.33, LFTs within normal limits. MRSA nasal screen negative. Respiratory viral panel negative. QuantiFERON gold positive. CT chest angio shows a large area of heterogeneous and nodular opacifications in the right upper lobe with multiple areas of cavitation present and hilar adenopathy. No pulmonary embolism. He was evaluated by pulmonary and empirically started on RIPE therapy for possible active pulmonary tuberculosis. 1 set of sputum cultures for AFB smear and culture obtained and pending. He is on on airborne isolation. Infectious disease consulted for possible Mycobacterium tuberculosis. On my initial evaluation, he reports night sweats and hemoptysis. Confirms on going cough since at least the end of March 2025. On exam, he is clammy. BS decreased at bases and has a small palpable lymph node of the left neck. Microbiology: 06/26 QuantiFERON gold positive 06/26 RVP negative 06/26 MRSA nares negative 06/27 bacterial respiratory culture NGTD 06/27 sputum culture AFB smear/culture in process 06/27sputum culture AFB smear/culture in process 06/28 sputum culture AFB smear/culture in process 06/28 sputum culture AFB smear/culture in process 06/28 HIV 4th gen negative 06/27 bacterial respiratory culture NGTD Anti-infectives Rifampin 06/27current Isoniazid 06/27current 06/27current 06/27current Pyrazinamide Ethambutol # Hemoptysis # Ongoing cough for > 2 months # Right upper lobe opacification with multiple cavitations # Hilar lymphadenopathy Discussion: This is a 20-year-old male college student initially from [place] who presents with hemoptysis and ~ 2-month history of cough and a few day history of night sweats. He reports an 8 pound weight loss in the last 2 months. He reports sick contact with his roommate who has a cough and hemoptysis Patient's ough predates his roommates cough. He denies any known exposure to TB. He is unclear if he has ever been tested for TB exposures prior to college. HIV testing negative Differential diagnosis for cavitary lesion within hemoptysis includes: Mycobacterial infections including tuberculosis and nontuberculosis Mycobacterium, bacterial infection with Staph aureus, Klebsiella pneumonia or pseudomonas aeruginosa, nocardia infections, fungal infections including invasive pulmonary aspergillosis, Coccidioides immitis, Blastomyces and histoplasma. He has risk factors for Mycobacterium TB as he is from [place] w/ night sweats an unintentional weight loss.. He has a positive QuantiFERON gold which only tells us that he has been exposed to Mycobacterium tuberculosis in the past. A QuantiFERON gold does not rule in or rule out active tuberculosis. The only way to rule out ACtive pulmonary tuberculosis is with respiratory culture data and/or Mycobacterium PCR. In addition to living in [place] he greene lived in [place]. Living in these areas put him at risk for fungal exposures to histoplasma and Coccidioides which can also lead to cavitary pneumonia with hemoptysis . Recommendations Continue airborne isolation Continue RIPE therapy started by pulmonology for possible Mycobacterium TB Continue vitamin B6 (pyridoxine) 50 mg p.o. daily while on RIPE to prevent side effects from isoniazid Follow-up bacterial sputum cultures 06/27 + 06/28 -Follow up AFB smear/sputum cultures from 06/27 and 06/28 ( alan collected 4) Monitor LFTs on RIPE Follow up sputum Mycobacterium PCR-- will need susceptibility testing if + Follow up Aspergillus antigen Follow up Histoplasma antibodies Follow up cryptococcus serum antigen Follow up Coccidioides antibody _Although no positive AFB to date, would notify [facility] as he lives in a college dorm and his room mate has similar respiratory symptoms. ID will continue to follow. David Carroll MD, MPH Infectious Disease [facility], ID Division Call [phone] with questions Admission and Anticipated Discharge Date Admission Date: June 26, 2025 Subjective This patient recommendation is based on a telemedicine consult request which was completed asynchronously through chart review and information provided by the primary physician. The patient was not seen or examined today. The evaluation is consultative in nature and all patient care and treatment decisions can either be accepted or rejected by the patient's primary hospital-based treating physician using their own independent medical judgment for their patient. Time Spent Reviewing Chart: 21 - 30 minutes tmax 37.7 Remains on RA HIV testing negative AFB sputum samples in process Respiratory bacterial sputum cx NGTD Results & Data Vital Signs (Past 12 Hours) Vital Signs Temp Pulse Pulse Resp BP Pulse Ox O2 Del Method 06/28/25 11:43 37.7 C H 89 21 109/59 L 96 Room Air 06/28/25 09:47 107 H 06/28/25 08:00 37.1 C 104 H 17 114/73 97 Room Air 06/28/25 04:00 37.2 C 105 H 20 126/65 98 Room Air Laboratory Results 06/27/25 01:00 Gram Stain - Final Sputum, Expectorated Sputum Culture - Preliminary Heavy normal lauro present, Final report to follow. 06/27/25 Unknown Acid Fast Bacilli Smear - Final Sputum, Expectorated Acid Fast Bacilli Culture - Pending 06/28/25 Unknown Gram Stain - Final Sputum, Expectorated Sputum Culture - Pending 06/28/25 Unknown Acid Fast Bacilli Smear - Pending Sputum, Expectorated Acid Fast Bacilli Culture - Pending 06/27/25 Unknown Acid Fast Bacilli Smear - Pending Sputum, Expectorated Acid Fast Bacilli Culture - Pending 10/06/27/25 06/26/25 05:54 01:41 19:38 WBC 8.31 RBC 4.45 L Hgb 12.3 L Hct 36.3 L MCV 81.6 MCH 27.6 MCHC 33.9 RDW Std Deviation 36.9 RDW Coeff of Tiffany 12.4 Plt Count 296 MPV 10.5 Immature Gran % (Auto) 0.5 Neut % (Auto) 67.6 Lymph % (Auto) 16.8 [place] % (Auto) 12.6 Eos % (Auto) 1.9 Baso % (Auto) 0.6 Neut # (Auto) 5.61 Lymph # (Auto) 1.40 [place] # (Auto) 1.05 H Eos # (Auto) 0.16 Baso # (Auto) 0.05 Immature Gran # (Auto) 0.04 Sodium 136 Potassium 4.0 Chloride 100 Carbon Dioxide 26 Anion Gap 10 BUN 9 Creatinine 0.94 Est Cr Clr Drug Dosing 140.5 eGFR 118.28 BUN/Creatinine Ratio 9.6 L Glucose 105 H Calcium 9.0 Procalcitonin 0.13 TB Test (QFT) Gold Plus POSITIVE A TB Test (QFT) Nil 2.290 TB Test (QFT) Mitogen 10.000 TB Test (QFT) Ag 1 7.040 TB Test (QFT) Ag 2 4.430 Miscellaneous Test Cancelled Miscellaneous Test 3 Cancelled Diagnostic Findings Chest CTA 06/26/25 16:52 EXAMINATION: CT angio chest PE protocol CLINICAL HISTORY: Cough, hemoptysis, PE risk factors, recent pneumonia PRIORS: None TECHNIQUE: Contiguous axial images were obtained through the chest with the use of intravenous contrast. Sagittal and coronal reformations are supplied. FINDINGS: The pulmonary arteries are normal in size and well opacified. No central or peripheral pulmonary embolism identified. Large area of patchy and nodular opacification present throughout the right upper lung, centrally and extending to the periphery. Multiple areas of cavitation are present, for example image 94, series 3 measuring 2.3 cm. No fluid or soft tissue within the calcification. Scattered air bronchograms noted throughout the opacification. The right lung apex is spared. Right middle and right lower lobes are unremarkable. Left lung is normally expanded. Right hilar adenopathy is present. Heart size is normal. No pleural or pericardial effusion. Trachea and mainstem bronchi are patent. Thyroid normal in size. Upper abdomen unremarkable. No acute osseous abnormality. IMPRESSION: 1. Large area of heterogeneous and nodular opacification in the right upper lobe with multiple areas of cavitation present and hilar adenopathy. Pulmonary consultation is suggested to further assess for infectious and inflammatory entities. 2. No pulmonary embolism. ACT 112: Positive. There are findings on this examination that require communication between the performing entity and the patient following Patient Test Result Information Act ([place] ACT 112) guidelines. Electronically signed by Angelica Hannon 06-26-2025 6:25 PM Medications Administered Home Medications Medication Instructions Recorded Confirmed Last Taken finasteride 1 mg tablet 0 mg PO DIRECTED 06/26/25 06/26/25 Unknown minoxidil 2.5 mg tablet 0 mg PO DIRECTED 06/26/25 06/26/25 Unknown Active Medications Generic Name Dose Route Start Last Admin Trade Name Freq PRN Reason Stop Dose Admin Acetaminophen 650 mg 06/27/25 00:02 06/28/25 11:57 Acetaminophen 325 Mg Tab PO 07/27/25 00:01 650 mg Q4H PRN Administration Pain or Fever Ethambutol HCl 1,600 mg 06/27/25 09:00 06/28/25 09:13 Ethambutol Hcl 400 Mg Tab PO 07/27/25 08:59 1,600 mg DAILY SKY Administration Isoniazid 300 mg 06/27/25 09:00 06/28/25 09:12 Isoniazid 100 Mg Tab PO 07/27/25 08:59 300 mg QAM SKY Administration Pyrazinamide 2,000 mg 06/27/25 09:00 06/28/25 09:11 Pyrazinamide 500 Mg Tablet PO 07/27/25 08:59 2,000 mg QAM SKY Administration Pyridoxine HCl 50 mg 06/27/25 18:45 06/28/25 09:13 Pyridoxine Hcl 50 Mg Tab PO 07/27/25 18:44 50 mg QAM SKY Administration Rifampin 600 mg 06/27/25 09:00 06/28/25 09:12 Rifampin 300 Mg Capsule PO 07/27/25 08:59 600 mg QAM SKY Administration
--- NOTE | 2025-06-28 13:31 | Hospitalist Progress Note ---
Date of Service June 28, 2025 Assessment & Plan (1) Hemoptysis: (2) Cavitary lesion of lung: (3) Tuberculosis: Dilcia Kay is a 20 y/o male with no past significant medical history that presented to the ED due to worsening cough and hemoptysis. Patient states having influenza a month ago when the cough started. A week ago he was diagnosed with Pneumonia and got teated with Doxycycline (last dose 06/25) by [facility]. He states yesterday he had an episode of cough that was slight red. Today he states was coughing bright blood. He states having chills some days. Denied any weight loss. He recently travelled to [place] to visit family. He states his roommate had been sick as well, with similar cough on and off. He was living in [place] 2 years before starting in [employer]. No history of TB. He's update with his immunizations. Patient denied been sexually active, denied any smoking, or alcohol use. Chest CT: with nodular opacifications in the right upper lobe with multiples renetta of cavitations and hilar adenopathy. No PE. WBC with no leukocytosis, no left shift. Hgb 11.7. chemistry normal. Liver enzymes without signs of inflammations. Biofire negative. Patient will be admitted for further workup and IV antibiotics Hemoptysis/ Cavitary lesions - Patient with cough for more than a month and hemoptysis. Chills. Recent travel to [place] - CT chest: right lobe nodular opacifications, and cavitations, + hilar adenopathy. No PE - Differential diagnosis include tuberculosis, fungal infection, S. aureus infection - Bio fire negative. no leukocytosis. stable Hgb - Sputum culture ordered with acid fast stain - QuantiFERON gold test ordered and positive: Does not differentiate between past, latent, and active TB or other fungal causes - Isolations: droplets and airborne - Vancomycin and Zosyn d/c for RIPE therapy, hospital [facility] to determine d/c and isolation precautions - Pulmonology and ID consulted recs as follows - Avoid bronchoscopy for now due to risk of potential active TB infection contamination/spread - Acid fast sputum and culture stains Q8H x3 ordered, will await results stains will continue to be monitored for 6 weeks - Acid fast stain positive for moderate acid-fast bacilli - TB PCR sputum sent and pending - Coccidioides, Histoplasma, Cryptococcal, aspergillus labs sent - CBC, BMP, Uric acid QAM DVT prophylaxis: ambulation, low risk Dipos: Med/ Telemetry - isolations precautions Admission and Anticipated Discharge Date Admission Date: June 26, 2025 Supervising Physician Co-Signing Physician Notes Attending addendum: I have physically seen this patient, have supervised the medical residents activities, and agree with the note above unless as otherwise noted. Assessment and Plan: The patient is a 20-year-old male with no significant past medical history. He recently traveled to [place] to visit his family, and reports sick contact with his roommate, who has a similar cough on and off. His roommate traveled to [place]. He reports living in [place] for 2 years before starting school at [employer]. He had no history of TB or known exposures to TB. He reports being up-to-date with his immunizations. CTA chest performed in the ED is negative for pulmonary embolism. There are nodular opacifications in the right upper lobe with multiple areas of cavitations and hilar adenopathy. Quantiferon Gold is not positive. COnsulted ID. Obtained AFB cultures: which are nowpositive. Notified [facility]. Ordered drg sensitivity testing. Given TB diagnosis, will order HIV testing. continue airborne isolation. Placed on empiric coverage for TB. Cavitary lung lesions/hemoptysis secondary to active tuberculosis infection As above. Consult pulmonology Serial laboratories as noted Subjective Patient is seen resting comfortably this AM. Continues to have waxing and waning fevers with hemoptysis. Patient is hemodynamically stable. Physical Exam Physical Exam: General: patient resting comfortably, NAD, non-toxic in appearance, answers questions appropriately. Skin: warm, dry, intact HEENT: NC/AT, anicteric sclera, conjunctiva without injection, moist mucus membranes. Heart: +S1/S2, regular, no m/r/g Lungs: equal air entry bilaterally, no rales/rhonchi/wheezes Abd: +BS, soft, NT/ND Ext: warm, no clubbing/cyanosis or edema. Neuro: nonfocal, speech intact, no facial droop, moving all extremities. Results & Data Results & Data Vital Signs (Past 12 Hours) Vital Signs Temp Pulse Pulse Resp BP Pulse Ox O2 Del Method 06/28/25 11:43 37.7 C H 89 21 109/59 L 96 Room Air 10/16/25 09:47 107 H 06/28/25 08:00 37.1 C 104 H 17 114/73 97 Room Air 06/28/25 04:00 37.2 C 105 H 20 126/65 98 Room Air Resident Activity Tracking Resident Involvement: Resident Care Provided Care Provided: Adult [place] [facility]
[2025-06-29 06:30] LABS: Hematocrit (blood only) 37.8 % (42.0-52.0); Hemoglobin 12.2 g/dl (14.0-18.0); Immature Granulocytes # (auto) 0.04 K/uL (0.01-0.20); Immature Granulocytes % (auto) 0.5 %; Mean Corpuscular Hemoglobin 26.4 pg (25.0-34.0); Mean Corpuscular Volume 81.8 fL (80.0-100.0); Platelet Count 301 K/uL (130-400); RDW Standard Deviation 37.2 fL (36.4-46.3); Red Blood Count 4.62 M/uL (4.70-6.10); White Blood Count 8.46 K/ul (4.8-10.8)
[2025-06-29 06:51] LABS: Alanine Aminotransferase 21.0 U/L (7-52); Albumin Globulin Ratio 0.7 (0.9-2); Albumin Level 3.2 gm/dl (3.4-5.0); Alkaline Phosphatase 80.0 U/L (34-104); Anion Gap 8.0 (3-11); Bilirubin,Total 0.5 mg/dl (0.2-1.0); Blood Urea Nitrogen 13.0 mg/dl (6-23); Calcium 9.2 mg/dl (8.6-10.3); Carbon Dioxide 27.0 mmol/L (21-32); Chloride 100.0 mmol/L (98-107); Creatinine Clr Calc Pharmacy 132.1 ml/min; Globulin 4.3 gm/dl (2.5-4.0); Glucose 95.0 mg/dl (70-99(Fasting)); Potassium 4.1 mmol/L (3.5-5.1); Sodium 135.0 mmol/L (136-145); Total Protein 7.5 gm/dl (6.0-8.3); Uric Acid 7.6 mg/dl (2.6-7.2)
--- NOTE | 2025-06-29 08:14 | Hospitalist Progress Note ---
Date of Service June 29, 2025 Assessment & Plan (1) Hemoptysis: (2) Cavitary lesion of lung: (3) Tuberculosis: Dilcia Kay is a 20 y/o male with no past significant medical history that presented to the ED due to worsening cough and hemoptysis. Patient states having influenza a month ago when the cough started. A week ago he was diagnosed with Pneumonia and got teated with Doxycycline (last dose 06/25) by [facility]. He states yesterday he had an episode of cough that was slight red. Today he states was coughing bright blood. He states having chills some days. Denied any weight loss. He recently travelled to [place] to visit family. He states his roommate had been sick as well, with similar cough on and off. He was living in [place] 2 years before starting in [employer] [facility]. No history of TB. He's update with his immunizations. Patient denied been sexually active, denied any smoking, or alcohol use. Chest CT: with nodular opacifications in the right upper lobe with multiples renetta of cavitations and hilar adenopathy. No PE. WBC with no leukocytosis, no left shift. Hgb 11.7. chemistry normal. Liver enzymes without signs of inflammations. Biofire negative. Patient will be admitted for further workup and IV antibiotics Hemoptysis/ Cavitary lesions - Patient with cough for more than a month and hemoptysis. Chills. Recent travel to [place] - CT chest: right lobe nodular opacifications, and cavitations, + hilar adenopathy. No PE - Differential diagnosis include tuberculosis, fungal infection, S. aureus infection - Bio fire negative. no leukocytosis. stable Hgb - Sputum culture ordered with acid fast stain - QuantiFERON gold test ordered and positive: Does not differentiate between past, latent, and active TB or other fungal causes - Isolations: droplets and airborne - Vancomycin and Zosyn d/c for RIPE therapy, hospital will f/u with [facility] health department to determine d/c and isolation precautions - Pulmonology and ID consulted recs as follows - Avoid bronchoscopy for now due to risk of potential active TB infection contamination/spread - Acid fast sputum and culture stains Q8H x3 ordered, will await results stains will continue to be monitored for 6 weeks - Acid fast stain positive for moderate acid-fast bacilli - TB PCR sputum sent and pending - Coccidioides, Histoplasma, Cryptococcal, aspergillus labs pending - CBC, BMP, CRP QAM DVT prophylaxis: ambulation, low risk Dipos: Med/ Telemetry - isolations precautions Admission and Anticipated Discharge Date Admission Date: June 26, 2025 Supervising Physician Co-Signing Physician Notes Attending addendum: I have physically seen this patient, have supervised the medical residents activities, and agree with the note above unless as otherwise noted. Assessment and Plan: The patient is a 20-year-old male with no significant past medical history. He recently traveled to [place] to visit his family, and reports sick contact with his roommate, who has a similar cough on and off. His roommate traveled to [place]. He reports living in [place] for 2 years before starting school at [employer]. He had no history of TB or known exposures to TB. He reports being up-to-date with his immunizations. CTA chest performed in the ED is negative for pulmonary embolism. There are nodular opacifications in the right upper lobe with multiple areas of cavitations and hilar adenopathy. Quantiferon Gold is now positive. Consulted ID. Obtained AFB cultures: which are positive. Notified [facility] department. Ordered drg sensitivity testing. Given likely TB diagnosis, ordered HIV testing. This was negative. continue airborne isolation. Awaiting confirmatory testing. Placed on empiric coverage for TB. Cavitary lung lesions/hemoptysis secondary to active tuberculosis infection As above. Consult pulmonology Serial laboratories as noted Subjective Derek is seen resting this AM comfortably. Patient reports that he has been feeling more tired with less appetite and has had more hemoptysis compared to the day prior. Patient denies chest pain, palpitations, and SOB. He felt feverish overnight but reports resolution in the morning. Patient reports that he has not had post-prandial nausea, abdominal pain, or vomiting. Physical Exam Physical Exam: General: patient resting comfortably, NAD, non-toxic in appearance, answers questions appropriately. Skin: warm, dry, intact HEENT: NC/AT, anicteric sclera, conjunctiva without injection, moist mucus membranes. Heart: +S1/S2, regular, no m/r/g Lungs: equal air entry bilaterally, no rales/rhonchi/wheezes Abd: +BS, soft, NT/ND Ext: warm, no clubbing/cyanosis or edema. Neuro: nonfocal, speech intact, no facial droop, moving all extremities. Results & Data Results & Data Vital Signs (Past 12 Hours) Vital Signs Temp Pulse Resp BP Pulse Ox O2 Del Method 06/29/25 07:39 37.7 C H 87 19 99/67 L 96 Room Air 06/29/25 02:49 37.8 C H 94 H 16 128/68 98 Room Air 06/29/25 00:16 37.5 C 98 H 16 120/60 98 Room Air Resident Activity Tracking Resident Involvement: Resident Care Provided Care Provided: Adult Hospital Medicine
--- NOTE | 2025-06-29 08:40 | Billing Data ---
Date of Service June 27, 2025 Coding Level of Care Code 22322 SUB INP/OBS CARE 3/50MIN Time Spent (min) 50
--- NOTE | 2025-06-29 08:42 | Billing Data ---
Date of Service June 28, 2025 Coding Level of Care Code 88132 SUB INP/OBS CARE MIN
--- NOTE | 2025-06-29 13:10 | Infectious Disease Progress Nt ---
Date of Service June 29, 2025 Assessment & Plan (1) Cavitary lesion of lung: (2) Hemoptysis: Plan This is a 20-year-old male college student with no significant past medical history who presented to the ED on 06/26 with hemoptysis. He was born in [place] and lived there for 15 years. He then came to the and lived in [place]. He went back to [place] and has been there for the last 2 years. While there he lived in an urban area in [place]. 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 He recently came back to the for college. He is a business student. He does not work with animals or do any research with chemicals. He is not sexually active. He has had a cough since about March 2025. In the last few days his cough has become productive with hemoptysis. He has developed night sweats.Since returning to the , he he has lost approximately 8 pounds. He feels that his weight loss is from not liking the food here. He used to play soccer about 5 times per week but now is less active secondary to fatigue. He denied nausea, vomiting, body aches. .He denied contact with anyone with known tuberculosis. He denied history of any fungal infections. He does not know if he ever tested + for exposure to TB prior to starting college. He denies any alcohol use or illicit drugs. His college roommate also has a cough and has developed hemoptysis. He denies any animal bites, mosquito bites. On admission he was febrile with a Tmax of 38.1. He was satting 98% on room air. Labs: WBC 8.33, LFTs within normal limits. MRSA nasal screen negative. Respiratory viral panel negative. QuantiFERON gold positive. CT chest angio shows a large area of heterogeneous and nodular opacifications in the right upper lobe with multiple areas of cavitation present and hilar adenopathy. No pulmonary embolism. He was evaluated by pulmonary and empirically started on RIPE therapy for possible active pulmonary tuberculosis. Sputum cultures for AFB smear and culture obtained and in process. He is on on airborne isolation. Infectious disease consulted for possible Mycobacterium tuberculosis. On my initial evaluation, he reports night sweats and hemoptysis. Confirms on going cough since at least the end of March 2025. On exam, he was clammy. BS decreased at bases and had a ?? small palpable lymph node of the left neck. Microbiology: 06/26 QuantiFERON gold positive 06/26 RVP negative 06/26 MRSA nares negative 06/27 bacterial respiratory culture NG 06/27 sputum culture AFB smear neg /culture #1 in process 06/27 sputum MTB PCR ( miscellaneous) SO- in process 06/27 sputum culture AFB smear neg /culture # 2 in process 06/28 sputum culture AFB smear neg /culture # 3 in process 06/28 sputum culture AFB smear pending /culture # 4 in process 06/28 HIV 4th gen negative 06/28 bacterial respiratory culture NGTD 06/29 bacterial respiratory culture NGTD 06/29 sputum culture AFB smear pending /culture # 5 in process Anti-infectives Rifampin 06/27current Isoniazid 06/27current Pyrazinamide 06/27current Ethambutol 06/27current # Hemoptysis # Ongoing cough for > 2 months # Right upper lobe opacification with multiple cavitations # Hilar lymphadenopathy Discussion: This is a 20-year-old male college student initially from [place] who presents with hemoptysis and ~ 2-month history of cough and a few day history of night sweats. He reports an 8 pound unintentional weight loss in the last 2 months. He reports sick contact with his roommate who has a cough and hemoptysis Patient's cough predates his roommates cough. He denies any known exposure to TB. He is unclear if he has ever been tested for TB exposures prior to college. HIV testing negative Differential diagnosis for cavitary lesion within hemoptysis includes: Mycobacterial infections including tuberculosis and non-tuberculosis Mycobacterium, bacterial infection with Staph aureus, Klebsiella pneumonia or pseudomonas aeruginosa, nocardia infections, fungal infections including invasive pulmonary aspergillosis, Coccidioides immitis, Blastomyces and histoplasma. He has risk factors for Mycobacterium TB as he is from [place] w/ night sweats and unintentional weight loss.. He has a positive QuantiFERON gold which only tells us that he has been exposed to Mycobacterium tuberculosis in the past. A QuantiFERON gold does not rule in or rule out active tuberculosis. The only way to rule out ACtive pulmonary tuberculosis is with respiratory culture data and/or Mycobacterium PCR. In addition to living in [place] he has lived in [place]. Living in [place] and [place] put him at risk for fungal exposures to histoplasma and Coccidioides which can be associated w/ cavitary pneumonia with hemoptysis . Recommendations Continue airborne isolation Continue RIPE therapy started by pulmonology for possible Mycobacterium TB Continue vitamin B6 (pyridoxine) 50 mg p.o. daily while on RIPE to prevent side effects from isoniazid Follow-up bacterial sputum cultures 06/28+ 06/29 -Follow up AFB smear/sputum cultures from 06/27 , 06/28 + 06/29 ( alan collected 5). NO Additional collection of AFB sputum needed. Will await results of current samples. Repeat may be necessary based on pending results. Monitor LFTs on empiric RIPE Follow up sputum Mycobacterium PCR ( ordered as miscellaneous, 06/27) -- will need susceptibility testing if + Follow up Aspergillus antigen Follow up Histoplasma antibodies Follow up cryptococcus serum antigen Follow up Coccidioides antibody -Although no positive AFB to date, would notify [facility] as he lives in a college dorm and his room mate has similar respiratory symptoms. - If febrile on RIPE, ADD zosyn for coverage of Possible bacterial pna ID will continue to follow, but [facility] will not round or review the chart over the weekend. Call covering provider at [facility] at [phone] with questions. ID will resume coverage on Monday 07/02. David Carroll MD, MPH Infectious Disease [facility], [facility] Admission and Anticipated Discharge Date Admission Date: June 26, 2025 Subjective Subsequent visit was provided via telemedicine using two-way real-time intera ctive telecommunication between the patient and the telemedicine provider. For the duration of the visit, the provider was performing the assessment from a different facility than the patient. This includesuse of bluetooth stethoscope forauscultationperformed by the telepresenter that the telemedicine provider can hear if described in the physical exam. [employer] contact information: Please call [facility] Call Center [phone]. (Phone Number For Physician Use Only) After establishing a telemedicine visit, patient was: Patient was verified with two unique identifiers and Gave permission to continue telehealth session Time Spent with Patient: Subsequent => 25 min He is much more fatigued today Decreased appetite continued hemoptysis + sweats TM 37.8 Mom came from [place] and will be in later today Sputum cx with NGTD Physical Exam Physical Exam: Gen- NAD HEENT- Anicteric sclera, EOMI. AT/NC Neck- supple, no adenopathy on today's exam with telpresenter Lung- Non labored breathing. Decreased BS at bases. On RA Abd- soft, NT, ND Ext- No edema Neuro- AAO times 3 Psych- Cooperative, Normal mood. Results & Data Vital Signs (Past 12 Hours) Vital Signs Temp Pulse Resp BP Pulse Ox O2 Del Method 06/29/25 11:34 37.1 C 96 H 20 106/71 97 Room Air 06/29/25 07:39 37.7 C H 87 19 99/67 L 96 Room Air 06/29/25 02:49 37.8 C H 94 H 16 128/68 98 Room Air Laboratory Results Laboratory Results - last 48 hr 06/27/25 06/28/25 06/28/25 01:41 05:50 05:54 WBC 8.31 RBC 4.45 L Hgb 12.3 L Hct 36.3 L MCV 81.6 MCH 27.6 MCHC 33.9 RDW Std Deviation 36.9 RDW Coeff of Tiffany 12.4 Plt Count 296 MPV 10.5 Immature Gran % (Auto) 0.5 Neut % (Auto) 67.6 Lymph % (Auto) 16.8 [place] % (Auto) 12.6 Eos % (Auto) 1.9 Baso % (Auto) 0.6 Neut # (Auto) 5.61 Lymph # (Auto) 1.40 [place] # (Auto) 1.05 H Eos # (Auto) 0.16 Baso # (Auto) 0.05 Immature Gran # (Auto) 0.04 Sodium 136 Potassium 4.0 Chloride 100 Carbon Dioxide 26 Anion Gap 10 BUN 9 Creatinine 0.94 Est Cr Clr Drug Dosing 140.5 eGFR 118.28 BUN/Creatinine Ratio 9.6 L Glucose 105 H Uric Acid Calcium 9.0 Total Bilirubin AST ALT Alkaline Phosphatase Total Protein Albumin Globulin Albumin/Globulin Ratio Procalcitonin 0.13 HIV 1&2 Ab/P24 Ag 4thGn Negative Miscellaneous Test Cancelled Miscellaneous Test 3 Cancelled 06/29/25 05:53 WBC 8.46 RBC 4.62 L Hgb 12.2 L Hct 37.8 L MCV 81.8 MCH 26.4 MCHC 32.3 RDW Std Deviation 37.2 RDW Coeff of Tiffany 12.5 Plt Count 301 MPV 9.9 Immature Gran % (Auto) 0.5 Neut % (Auto) 58.7 Lymph % (Auto) 22.5 [place] % (Auto) 13.4 Eos % (Auto) 4.3 Baso % (Auto) 0.6 Neut # (Auto) 4.98 Lymph # (Auto) 1.90 [place] # (Auto) 1.13 H Eos # (Auto) 0.36 Baso # (Auto) 0.05 Immature Gran # (Auto) 0.04 Sodium 135 L Potassium 4.1 Chloride 100 Carbon Dioxide 27 Anion Gap 8 BUN 13 Creatinine 1.00 Est Cr Clr Drug Dosing 132.1 eGFR 109.81 BUN/Creatinine Ratio 13.0 Glucose 95 Uric Acid 7.6 H Calcium 9.2 Total Bilirubin 0.5 AST 15 ALT 21 Alkaline Phosphatase 80 Total Protein 7.5 Albumin 3.2 L Globulin 4.3 H Albumin/Globulin Ratio 0.7 L Procalcitonin HIV 1&2 Ab/P24 Ag 4thGn Miscellaneous Test Miscellaneous Test 3 Microbiology 06/27/25 01:00 Sputum, Expectorated Gram Stain - Final 06/27/25 01:00 Sputum, Expectorated Sputum Culture - Final Heavy normal lauro. 06/28/25 13:44 Sputum, Expectorated Gram Stain - Final 06/28/25 13:44 Sputum, Expectorated Sputum Culture - Preliminary Moderate normal lauro present, final report to follow. 06/28/25 Unknown Sputum, Expectorated Gram Stain - Final 06/28/25 Unknown Sputum, Expectorated Sputum Culture - Preliminary Moderate normal lauro present, final report to follow. 06/27/25 Unknown Sputum, Expectorated Acid Fast Bacilli Smear - Final 06/28/25 Unknown Sputum, Expectorated Acid Fast Bacilli Smear - Final 06/27/25 Unknown Sputum, Expectorated Acid Fast Bacilli Smear - Final Diagnostic Findings Chest CTA 06/26/25 16:52 EXAMINATION: CT angio chest PE protocol CLINICAL HISTORY: Cough, hemoptysis, PE risk factors, recent pneumonia PRIORS: None TECHNIQUE: Contiguous axial images were obtained through the chest with the use of intravenous contrast. Sagittal and coronal reformations are supplied. FINDINGS: The pulmonary arteries are normal in size and well opacified. No central or peripheral pulmonary embolism identified. Large area of patchy and nodular opacification present throughout the right upper lung, centrally and extending to the periphery. Multiple areas of cavitation are present, for example image 94, series 3 measuring 2.3 cm. No fluid or soft tissue within the calcification. Scattered air bronchograms noted throughout the opacification. The right lung apex is spared. Right middle and right lower lobes are unremarkable. Left lung is normally expanded. Right hilar adenopathy is present. Heart size is normal. No pleural or pericardial effusion. Trachea and mainstem bronchi are patent. Thyroid normal in size. Upper abdomen unremarkable. No acute osseous abnormality. IMPRESSION: 1. Large area of heterogeneous and nodular opacification in the right upper lobe with multiple areas of cavitation present and hilar adenopathy. Pulmonary consultation is suggested to further assess for infectious and inflammatory entities. 2. No pulmonary embolism. ACT 112: Positive. There are findings on this examination that require communication between the performing entity and the patient following Patient Test Result Information Act ([place] ACT 112) guidelines. Electronically signed by Angelica Hannon 06-26-2025 6:25 PM Medications Administered Home Medications Medication Instructions Recorded Confirmed Last Taken finasteride 1 mg tablet 0 mg PO DIRECTED 06/26/25 06/26/25 Unknown minoxidil 2.5 mg tablet 0 mg PO DIRECTED 06/26/25 06/26/25 Unknown Active Medications Generic Name Dose Route Start Last Admin Trade Name Freq PRN Reason Stop Dose Admin Acetaminophen 650 mg 06/27/25 00:02 06/28/25 11:57 Acetaminophen 325 Mg Tab PO 07/27/25 00:01 650 mg Q4H PRN Administration Pain or Fever Ethambutol HCl 1,600 mg 06/27/25 09:00 06/29/25 08:54 Ethambutol Hcl 400 Mg Tab PO 07/27/25 08:59 1,600 mg DAILY SKY Administration Isoniazid 300 mg 06/27/25 09:00 06/29/25 08:53 Isoniazid 100 Mg Tab PO 07/27/25 08:59 300 mg QAM SKY Administration Pyrazinamide 2,000 mg 06/27/25 09:00 06/29/25 08:53 Pyrazinamide 500 Mg Tablet PO 07/27/25 08:59 2,000 mg QAM SKY Administration Pyridoxine HCl 50 mg 06/27/25 18:45 06/29/25 08:54 Pyridoxine Hcl 50 Mg Tab PO 07/27/25 18:44 50 mg QAM SKY Administration Rifampin 600 mg 06/27/25 09:00 06/29/25 08:53 Rifampin 300 Mg Capsule PO 07/27/25 08:59 600 mg QAM SKY Administration
--- NOTE | 2025-06-29 15:23 | Pulmonology Progress Note ---
Date of Service June 29, 2025 Assessment & Plan (1) Cavitary lesion of lung: (2) Hemoptysis: (3) Tuberculosis: Plan Patient is a 20-year-old male who presented to the hospital for evaluation of worsening cough and new onset hemoptysis. CT of the chest showed right upper lo be infiltrate with cavitary lesions concerning for tuberculosis. The patient was in [place] for 2 years, there is a high burden of tuberculosis within the region. Estimated 173 cases per 100,000 population per year. There is multidrug-resistant and extensively drug-resistant strains frequently detected. The patient was admitted and placed on airborne precautions. Pulmonary was consulted for further evaluation. Problem list: Hemoptysis Mycobacterium tuberculosis infection Workup: TB Gold positive. Acid-fast cultures have been obtained, smears positive in 3 out of 3. No need for further samples. Plan: Continue airborne precautions. Health department is involved, they are arranging quarantine for the patient. We empirically initiated RIPE therapy for presumed TB on 06/27/2025 with isoni azid, rifampin, pyrazinamide and ethambutol. Pyridoxine was added to minimize side effects from isoniazid. Infectious diseases consulted. They have sent sputum Mycobacterium PCR, Aspergillus, histo, cryptococcus and coccidiodes. LFTs need to be monitored while he is on therapy. Monitor hemoptysis, not having a significant amount at this time. If this worsens then we can initiate TXA nebulizers. If patient has large-volume hemoptysis please position him right lateral decubitus and call physician immediately. Thank you for this consultation. I will follow along with you. Admission and Anticipated Discharge Date Admission Date: June 26, 2025 Subjective Patient is doing well this morning. He says he has decreased appetite and just feels tired however. His mom has been in to see him today. He says that health department has talked with him. Multiple arrangements are being made including arrangements for his quarantine after he is discharged from the hospital. Patient has had some hemoptysis again today, he had a significant amount earlier this morning and has had some small clots throughout the day. No large-volume hemoptysis however. Still remains on room air. Still having fevers. Review of Systems Review of Systems: A 12 point review of systems was obtained in detail. Negative except as noted in HPI. Physical Exam Physical Exam: Physical examination: General: Well-appearing, well-nourished and not in acute distress. HEENT: Normocephalic, atraumatic. Extraocular movements intact. Sclera are nonicteric. No JVD appreciated. Skin: Warm and dry. No rashes appreciated. No jaundice appreciated. Cardiovascular: Heart is a regular rate and rhythm, no murmurs appreciated on my exam. No significant lower extremity edema. Lungs: On room air, coarse breath sounds in the right upper lobe, no wheezing appreciated. No crackles. Nontachypneic. Resting comfortably on room air. Abdomen: Nondistended, nontender to palpation. Musculoskeletal: Normal muscle mass and tone. No gross joint deformity abnormalities. No effusions appreciated. Neurologic: Awake and alert, oriented. CN II through XII are grossly intact. Speech is fluent. Nonfocal exam. Psychiatric: Appropriate cooperative during my exam. Results & Data Results & Data Vital Signs (Past 12 Hours) Vital Signs Temp Pulse Pulse Resp BP Pulse Ox O2 Del Method 06/29/25 13:06 92 H 06/29/25 11:34 37.1 C 96 H 20 106/71 97 Room Air 06/29/25 07:39 37.7 C H 87 19 99/67 L 96 Room Air 06/29/25 05:41 84 PG Care Time/CCT Total # of Minutes Spent Total Time Spent with Patient: Total time spent is greater than 50% in coordination of care (as documented) at patient's floor/unit and/or counseling patient: Coding Level of Care Code 34606 SUB INP/OBS CARE 2/35MIN Diagnoses Cavitary lesion of lung J98.4 Hemoptysis R04.2 Tuberculosis A15.9
[2025-06-29] MEDS: ADVANCED PROBIOTIC 625 MG CAPSULE PO SCH (16:46)
[2025-06-30 06:57] LABS: Hematocrit (blood only) 36.1 % (42.0-52.0); Hemoglobin 11.9 g/dl (14.0-18.0); Immature Granulocytes # (auto) 0.03 K/uL (0.01-0.20); Immature Granulocytes % (auto) 0.4 %; Mean Corpuscular Hemoglobin 26.8 pg (25.0-34.0); Mean Corpuscular Volume 81.3 fL (80.0-100.0); Platelet Count 333 K/uL (130-400); RDW Standard Deviation 36.3 fL (36.4-46.3); Red Blood Count 4.44 M/uL (4.70-6.10); White Blood Count 7.36 K/ul (4.8-10.8)
[2025-06-30 07:18] LABS: Alanine Aminotransferase 21.0 U/L (7-52); Albumin Globulin Ratio 0.8 (0.9-2); Albumin Level 3.1 gm/dl (3.4-5.0); Alkaline Phosphatase 78.0 U/L (34-104); Anion Gap 9.0 (3-11); Bilirubin,Total 0.3 mg/dl (0.2-1.0); Blood Urea Nitrogen 13.0 mg/dl (6-23); Calcium 8.9 mg/dl (8.6-10.3); Carbon Dioxide 25.0 mmol/L (21-32); Chloride 102.0 mmol/L (98-107); Creatinine Clr Calc Pharmacy 167.2 ml/min; Globulin 4.1 gm/dl (2.5-4.0); Glucose 106.0 mg/dl (70-99(Fasting)); Potassium 3.7 mmol/L (3.5-5.1); Sodium 136.0 mmol/L (136-145); Total Protein 7.2 gm/dl (6.0-8.3)
--- NOTE | 2025-06-30 07:22 | Pulmonology Progress Note ---
Date of Service June 30, 2025 Assessment & Plan (1) Cavitary lesion of lung: (2) Hemoptysis: (3) Tuberculosis: Plan Patient is a 20-year-old male who presented to the hospital for evaluation of worsening cough and new onset hemoptysis. CT of the chest showed right upper lo be infiltrate with cavitary lesions concerning for tuberculosis. The patient was in [place] for 2 years, there is a high burden of tuberculosis within the region. 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 [place] has an estimated 173 cases per 100,000 population per year. There is multidrug-resistant and extensively drug- resistant strains frequently detected. The patient was admitted and placed on airborne precautions. Pulmonary was consulted for further evaluation. Problem list: Hemoptysis Mycobacterium tuberculosis infection Workup: TB Gold positive. Acid-fast cultures have been obtained, smears positive in 3 out of 3. No need for further samples. Plan: Continue airborne precautions. Health department is involved, they are arranging quarantine for the patient. We empirically initiated RIPE therapy for presumed TB on 06/27/2025 with isoniazid, rifampin, pyrazinamide and ethambutol. Pyridoxine was added to minimize side effects from isoniazid. Infectious diseases consulted. They have sent sputum Mycobacterium PCR, Aspergillus, histo, cryptococcus and coccidiodes. LFTs need to be monitored while he is on therapy. Hemoptysis is resolving. The patient needs repeat CT imaging of the chest in 2 to 3 months. He will also need additional imaging after he has completed treatment for tuberculosis. Please ensure this is arranged upon discharge. Thank you for this consultation. I will sign off at this time. Call with any questions. Admission and Anticipated Discharge Date Admission Date: June 26, 2025 Subjective Patient is doing well today. Hemoptysis has significantly decreased, only a small amount of darkish blood in his sputum. Still having some fevers. Still coughing significantly. He endorses some chest pain with coughing. Review of Systems Review of Systems: A 12 point review of systems was obtained in detail. Negative except as noted in HPI. Physical Exam Physical Exam: Physical examination: General: Well-appearing, well-nourished and not in acute distress. HEENT: Normocephalic, atraumatic. Extraocular movements intact. Sclera are nonicteric. No JVD appreciated. Skin: Warm and dry. No rashes appreciated. No jaundice appreciated. Cardiovascular: Heart is a regular rate and rhythm, no murmurs appreciated on my exam. No significant lower extremity edema. Lungs: On room air, coarse breath sounds in the right upper lobe, no wheezing appreciated. No crackles. Nontachypneic. Resting comfortably on room air. Abdomen: Nondistended, nontender to palpation. Musculoskeletal: Normal muscle mass and tone. No gross joint deformity abnormalities. No effusions appreciated. Neurologic: Awake and alert, oriented. CN II through XII are grossly intact. Speech is fluent. Nonfocal exam. Psychiatric: Appropriate cooperative during my exam. Results & Data Results & Data Vital Signs (Past 12 Hours) Vital Signs Temp Pulse Pulse Resp BP Pulse Ox O2 Del Method 06/30/25 05:49 76 06/30/25 02:20 37.0 C 78 18 128/70 95 Room Air 06/30/25 00:09 94 H 06/29/25 23:40 37.0 C 98 H 16 113/65 96 Room Air 06/29/25 21:00 Room Air PG Care Time/CCT Total # of Minutes Spent Total Time Spent with Patient: Total time spent is greater than 50% in coordination of care (as documented) at patient's floor/unit and/or counseling patient: Coding Level of Care Code 80668 SUB INP/OBS CARE 2/35MIN Diagnoses Cavitary lesion of lung J98.4 Hemoptysis R04.2 Tuberculosis A15.9
--- NOTE | 2025-06-30 10:47 | Billing Data ---
Date of Service June 29, 2025 Coding Level of Care Code 07058 SUB INP/OBS CARE MIN
[2025-06-30] MEDS: CALCIUM CARBONATE 500 MG CHEWABLE TAB PO PRN (14:32)
--- NOTE | 2025-06-30 15:33 | Hospitalist Progress Note ---
Date of Service June 30, 2025 Assessment & Plan (1) Hemoptysis: (2) Cavitary lesion of lung: (3) Tuberculosis: Dilcia Kay is a 20 y/o male with no past significant medical history that presented to the ED due to worsening cough and hemoptysis. Patient states having influenza a month ago when the cough started. A week ago he was diagnosed with Pneumonia and got teated with Doxycycline (last dose 06/25) by [facility]. He states yesterday he had an episode of cough that was slight red. Today he states was coughing bright blood. He states having chills some days. Denied any weight loss. He recently travelled to [place] to visit family. He states his roommate had been sick as well, with similar cough on and off. He was living in [place] 2 years before starting in [employer]. No history of TB. He's update with his immunizations. Patient denied been sexually active, denied any smoking, or alcohol use. Chest CT: with nodular opacifications in the right upper lobe with multiples renetta of cavitations and hilar adenopathy. No PE. WBC with no leukocytosis, no left shift. Hgb 11.7. chemistry normal. Liver enzymes without signs of inflammations. Biofire negative. Patient will be admitted for further workup and IV antibiotics Hemoptysis/ Cavitary lesions - Patient with cough for more than a month and hemoptysis. Chills. Recent travel to [place] - CT chest: right lobe nodular opacifications, and cavitations, + hilar adenopathy. No PE - Differential diagnosis include tuberculosis, fungal infection - Bio fire negative. no leukocytosis. stable Hgb - Sputum culture ordered with acid fast stain: positive but awaiting PCR tests - QuantiFERON gold test ordered and positive: Does not differentiate between past, latent, and active TB or other fungal causes - Isolations: droplets and airborne - Vancomycin and Zosyn d/c for RIPE therapy, hospital will f/u with [facility] health department to determine d/c and isolation precautions - Pulmonology and ID consulted recs as follows - Avoid bronchoscopy for now due to risk of potential active TB infection contamination/spread - Acid fast sputum and culture stains Q8H x3 ordered, will await results stains will continue to be monitored for 6 weeks - Acid fast stain positive for moderate acid-fast bacilli - TB PCR sputum sent and pending - Coccidioides, Histoplasma, Cryptococcal, aspergillus labs pending - CBC, BMP, CRP QAM DVT prophylaxis: ambulation, low risk Dipos: Med/ Telemetry - isolations precautions Admission and Anticipated Discharge Date Admission Date: June 26, 2025 Supervising Physician Co-Signing Physician Notes Attending addendum: I have physically seen this patient, have supervised the medical residents activities, and agree with the note above unless as otherwise noted. Assessment and Plan: The patient is a 20-year-old male with no significant past medical history. He recently traveled to [place] to visit his family, and reports sick contact with his roommate, who has a similar cough on and off. His roommate traveled to [place]. He reports living in [place] for 2 years before starting school at [employer]. He had no history of TB or known exposures to TB. He reports being up-to-date with his immunizations. CTA chest performed in the ED is negative for pulmonary embolism. There are nodular opacifications in the right upper lobe with multiple areas of cavitations and hilar adenopathy. Quantiferon Gold is now positive. Consulted ID. Obtained AFB cultures: which are positive. Notified [facility]. Ordered drg sensitivity testing. Given likely TB diagnosis, ordered HIV testing. This was negative. continue airborne isolation. Awaiting confirmatory testing. Placed on empiric coverage for TB. Paatient showing clinical improvement with RIPE therapy as no fevers. Decreased sputum production. Cavitary lung lesions/hemoptysis secondary to active tuberculosis infection As above. Consult pulmonology Serial laboratories as noted Subjective Patient is doing well today. Reports ongoing fatigue and less hemoptysis compared to the day prior. Patient denies abdominal pain, nausea, and vomiting. Does report ongoing lack of appetite, improved from yesterday but does report less intake than normal. Patient remains afebrile and hemodynamically stable. Physical Exam Physical Exam: General: patient resting comfortably, NAD, non-toxic in appearance, answers questions appropriately. Skin: warm, dry, intact HEENT: NC/AT, anicteric sclera, conjunctiva without injection, moist mucus membranes. Heart: +S1/S2, regular, no m/r/g Lungs: equal air entry bilaterally, no rales/rhonchi/wheezes Abd: +BS, soft, NT/ND Ext: warm, no clubbing/cyanosis or edema. Neuro: nonfocal, speech intact, no facial droop, moving all extremities. Results & Data Results & Data Vital Signs (Past 12 Hours) Vital Signs Temp Pulse Pulse Resp BP Pulse Ox O2 Del Method 06/30/25 14:00 Room Air 06/30/25 13:08 68 06/30/25 12:58 37.1 C 72 19 119/71 97 Room Air 06/30/25 07:29 37.2 C 80 14 117/72 96 Room Air 06/30/25 05:49 76 Resident Activity Tracking Resident Involvement: Resident Care Provided Care Provided: Adult Hospital Medicine
[2025-06-30] MEDS ORDERED: CALCIUM CARBONATE 1250MG TAB PO SCH (21:00)
[2025-07-01 06:37] LABS: Hematocrit (blood only) 34.1 % (42.0-52.0); Hemoglobin 11.6 g/dl (14.0-18.0); Immature Granulocytes # (auto) 0.04 K/uL (0.01-0.20); Immature Granulocytes % (auto) 0.5 %; Mean Corpuscular Hemoglobin 27.6 pg (25.0-34.0); Mean Corpuscular Volume 81.0 fL (80.0-100.0); Platelet Count 326 K/uL (130-400); RDW Standard Deviation 35.6 fL (36.4-46.3); Red Blood Count 4.21 M/uL (4.70-6.10); White Blood Count 8.34 K/ul (4.8-10.8)
[2025-07-01 06:54] LABS: Alanine Aminotransferase 21.0 U/L (7-52); Albumin Globulin Ratio 0.8 (0.9-2); Albumin Level 3.1 gm/dl (3.4-5.0); Alkaline Phosphatase 81.0 U/L (34-104); Anion Gap 7.0 (3-11); Bilirubin,Total 0.3 mg/dl (0.2-1.0); Blood Urea Nitrogen 10.0 mg/dl (6-23); Calcium 8.8 mg/dl (8.6-10.3); Carbon Dioxide 27.0 mmol/L (21-32); Chloride 103.0 mmol/L (98-107); Creatinine Clr Calc Pharmacy 153.6 ml/min; Globulin 3.9 gm/dl (2.5-4.0); Glucose 117.0 mg/dl (70-99(Fasting)); Potassium 3.6 mmol/L (3.5-5.1); Sodium 137.0 mmol/L (136-145); Total Protein 7.0 gm/dl (6.0-8.3)
--- NOTE | 2025-07-01 09:34 | Billing Data ---
Date of Service June 30, 2025 Coding Level of Care Code 12678 SUB INP/OBS CARE MIN
[2025-07-01] MEDS: ENOXAPARIN INJ 40 MG/0.4 ML SYR SQ SCH (10:24)
--- NOTE | 2025-07-01 13:43 | Hospitalist Progress Note ---
Date of Service July 01, 2025 Assessment & Plan (1) Hemoptysis: (2) Cavitary lesion of lung: (3) Tuberculosis: Dilcia Kay is a 20 y/o male with no past significant medical history that presented to the ED due to worsening cough and hemoptysis. Patient states having influenza a month ago when the cough started. A week ago he was diagnosed with Pneumonia and got teated with Doxycycline (last dose 06/25) by [facility]. He states yesterday he had an episode of cough that was slight red. Today he states was coughing bright blood. He states having chills some days. Denied any weight loss. He recently travelled to [place] to visit family. He states his roommate had been sick as well, with similar cough on and off. He was living in [place] 2 years before starting in [facility]. No history of TB. He's update with his immunizations. Patient denied been sexually active, denied any smoking, or alcohol use. Chest CT: with nodular opacifications in the right upper lobe with multiples renetta of cavitations and hilar adenopathy. No PE. WBC with no leukocytosis, no left shift. Hgb 11.7. chemistry normal. Liver enzymes without signs of inflammations. Biofire negative. Patient will be admitted for further workup and IV antibiotics Hemoptysis/ Cavitary lesions: Condition improving, fatigue and lack of appetite improved. Patient would like to ambulate and excercise within his room and feels well enough to do so w/o fevers, chills, or sweats. - Patient with cough for more than a month and hemoptysis. Chills. Recent travel to [place] - CT chest: right lobe nodular opacifications, and cavitations, + hilar adenopathy. No PE - Differential diagnosis include tuberculosis, fungal infection, S. aureus infection - Bio fire negative. no leukocytosis. stable Hgb - Sputum culture ordered with acid fast stain - QuantiFERON gold test ordered and positive: Does not differentiate between past, latent, and active TB or other fungal causes - Isolations: droplets and airborne - Vancomycin and Zosyn d/c for RIPE therapy, hospital will f/u with [facility] health department to determine d/c and isolation precautions - Pulmonology and ID consulted recs as follows - Avoid bronchoscopy for now due to risk of potential active TB infection contamination/spread - Acid fast sputum and culture stains Q8H x3 ordered, will await results stains will continue to be monitored for 6 weeks - Acid fast stain positive for moderate acid-fast bacilli - TB PCR sputum sent and pending - Coccidioides, Histoplasma, Cryptococcal, aspergillus labs pending - CBC, BMP, CRP QAM DVT prophylaxis: ambulation, low risk Dipos: Med/ Telemetry - isolations precautions Admission and Anticipated Discharge Date Admission Date: June 26, 2025 Subjective Patient is doing well today. Reports ongoing fatigue and less hemoptysis compared to the day prior. Patient denies abdominal pain, nausea, and vomiting. Does report ongoing lack of appetite, improved from yesterday but does report less intake than normal. Patient does note R. upper back pain. He does not like the hospital food and prefers fast food. Case is discussed with patient's mom. Patient asks for IV removal so that he may exercise in his room with jumping jacks and push-ups. Condition improving. Patient remains afebrile and hemodynamically stable. Physical Exam Physical Exam: General: patient resting comfortably, NAD, non-toxic in appearance, answers questions appropriately. Skin: warm, dry, intact HEENT: NC/AT, anicteric sclera, conjunctiva without injection, moist mucus membranes. Heart: +S1/S2, regular, no m/r/g Lungs: equal air entry bilaterally, no rales/rhonchi/wheezes Abd: +BS, soft, NT/ND Ext: warm, no clubbing/cyanosis or edema. Neuro: nonfocal, speech intact, no facial droop, moving all extremities. Results & Data Results & Data Vital Signs (Past 12 Hours) Vital Signs Temp Pulse Pulse Resp BP Pulse Ox O2 Del Method 07/01/25 11:36 36.8 C 76 16 115/60 97 Room Air 07/01/25 08:00 Room Air 07/01/25 08:00 82 07/01/25 07:42 36.9 C 69 16 97/45 L 97 Room Air 07/01/25 03:26 36.7 C 90 17 133/75 96 Room Air 07/01/25 02:38 95 H Resident Activity Tracking Resident Involvement: Resident Care Provided Care Provided: Adult [facility] Medicine
[2025-07-02 07:14] LABS: Hematocrit (blood only) 34.2 % (42.0-52.0); Hemoglobin 11.4 g/dl (14.0-18.0); Immature Granulocytes # (auto) 0.06 K/uL (0.01-0.20); Immature Granulocytes % (auto) 0.7 %; Mean Corpuscular Hemoglobin 27.3 pg (25.0-34.0); Mean Corpuscular Volume 82.0 fL (80.0-100.0); Platelet Count 313 K/uL (130-400); RDW Standard Deviation 36.6 fL (36.4-46.3); Red Blood Count 4.17 M/uL (4.70-6.10); White Blood Count 8.70 K/ul (4.8-10.8)
[2025-07-02 07:34] LABS: Alanine Aminotransferase 24.0 U/L (7-52); Albumin Globulin Ratio 0.8 (0.9-2); Albumin Level 3.2 gm/dl (3.4-5.0); Alkaline Phosphatase 80.0 U/L (34-104); Anion Gap 6.0 (3-11); Bilirubin,Total 0.3 mg/dl (0.2-1.0); Blood Urea Nitrogen 7.0 mg/dl (6-23); Calcium 8.9 mg/dl (8.6-10.3); Carbon Dioxide 30.0 mmol/L (21-32); Chloride 101.0 mmol/L (98-107); Creatinine Clr Calc Pharmacy 159.1 ml/min; Globulin 3.9 gm/dl (2.5-4.0); Glucose 110.0 mg/dl (70-99(Fasting)); Potassium 3.5 mmol/L (3.5-5.1); Sodium 137.0 mmol/L (136-145); Total Protein 7.1 gm/dl (6.0-8.3)
[2025-07-02 07:38] VITALS: RESP 18
--- NOTE | 2025-07-02 08:58 | Infectious Disease Progress Nt ---
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 He was born in [place] and lived there for 15 years. He then came to the and lived in [place]. He went back to [place] and has been there for the last 2 years. While there he lived in an urban area in [place]. 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 He has had a cough since about March 2025. In the last few days his cough has become productive with hemoptysis. He has developed night sweats. Since returning to the [place], he has lost approximately 8 pounds, which he felt was due to not liking the food here. He used to play soccer about 5 times per week but now is less active secondary to fatigue. He denied contact with anyone with known tuberculosis. He denied history of any fungal infections. He does not know if he ever tested + for exposure to TB prior to starting college. He denies any alcohol use or illicit drugs. His college roommate also has a cough and has developed hemoptysis. On admission he was febrile with a Tmax of 38.1. He was satting 98% on room air. Labs: WBC 8.33, LFTs within normal limits. MRSA nasal screen negative. Respiratory viral panel negative. QuantiFERON gold positive. CT chest angio shows a large area of heterogeneous and nodular opacifications in the right upper lobe with multiple areas of cavitation present and hilar adenopathy. No pulmonary embolism. He was evaluated by pulmonary and empirically started on RIPE therapy for possible active pulmonary tuberculosis. Sputum bacterial culture with normal lauro, but multiple AFB smears positive, AFB culture pend ing. TB PCR pending. Microbiology: 06/26 QuantiFERON gold positive 06/26 RVP negative 06/26 MRSA nares negative 06/27 bacterial respiratory culture: heavy normal lauro 06/27 sputum AFB smear: moderate AFB, culture #1 in process 06/27 sputum MTB PCR ( miscellaneous) SO- in process 06/27 sputum AFB smear: moderate AFB, culture # 2 in process 06/28 Sputum cx: moderate normal lauro 06/28 sputum AFB smear: many AFB, culture # 3 in process 06/28 sputum AFB smear: moderate AFB, culture # 4 in process 06/28 HIV 4th gen negative 06/28 bacterial respiratory culture NGTD 06/29 bacterial respiratory culture: moderate normal lauro 06/29 sputum AFB smear: few AFB, culture # 5 in process Anti-infectives Rifampin 06/27current Isoniazid 06/27current Pyrazinamide 06/27current Ethambutol 06/27current Discussion: Multiple AFB smears positive, concerning for pulmonary TB in a patient from [place] with night sweats, hemoptysis, and weight loss. TB PCR and AFB cultures pending. Note that pt lives in a college dorm with a roommate who has similar respiratory symptoms. 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 daily while on RIPE to prevent side effects from isoniazid - Follow-up TB PCR (ordered as miscellaneous, 06/27) and sputum AFB cultures--unlikely to return prior to discharge Monitor LFTs on empiric RIPE Follow up Aspergillus antigen, Histoplasma antibodies, cryptococcus serum antigen, Coccidioides antibody - Ok for discharge when cleared by [facility] and housing is set up Will sign off. Admission and Anticipated Discharge Date Admission Date: June 26, 2025 Subjective Subsequent visit was provided via telemedicine using two-way real-time interactive telecommunication between the patient and the telemedicine provider. For the duration of the visit, the provider was performing the assessment from a different facility than the patient. This includesuse of bluetooth stethoscope forauscultationperformed by the telepresenter that the telemedicine provider can hear if described in the physical exam. [employer] contact information: Please call [facility] [phone]. (Phone Number For Physician Use Only) After establishing a telemedicine visit, patient was: Patient was verified with two unique identifiers, Patient/authorized rep acknowledged consent and understanding and Gave permission to continue telehealth session Time Spent with Patient: Subsequent => 25 min Afebrile Pt reports being fatigued, with worsened R chest pain (3-4/10 pain) Results & Data Vital Signs (Past 12 Hours) Vital Signs Temp Pulse Resp BP Pulse Ox O2 Del Method 07/02/25 07:37 36.7 C 75 18 120/73 96 Room Air 07/01/25 23:21 37.0 C 78 17 131/72 97 Room Air 07/01/25 21:45 Room Air Laboratory Results Short CBC 07/02/25 Range/Units 06:18 WBC 8.70 (4.8-10.8) K/ul Hgb 11.4 L (14.0-18.0) g/dl Hct 34.2 L (42.0-52.0) % Plt Count 313 (130-400) K/uL BMP 07/02/25 06:18 Sodium 137 Potassium 3.5 Chloride 101 Carbon Dioxide 30 BUN 7 Creatinine 0.83 Glucose 110 H Calcium 8.9 Liver Function 07/02/25 Range/Units 06:18 Total Bilirubin 0.3 (0.2-1.0) mg/dl AST 19 (13-39) U/L ALT 24 (7-52) U/L Alkaline Phosphatase 80 (34-104) U/L Albumin 3.2 L (3.4-5.0) gm/dl
[2025-07-02 12:07] VITALS: PULSE 77; TEMP 98.2; O2SAT 97
--- NOTE | 2025-07-02 12:27 | Discharge Summary ---
Date of Service July 02, 2025 Admission HPI Per Admitting Provider Rahul is a 20 y/o male with no past significant medical history that presented to the ED due to worsening cough and hemoptysis. Patient states having influenza a month ago when the cough started. A week ago he was diagnosed with Pneumonia and got teated with Doxycycline (last dose 06/25) by [facility]. He states yesterday he had an episode of cough that was slight red. Today he states was coughing bright blood. He states having chills some days. Denied any weight loss. He recently travelled to [place] to visit family. He states his roommate had been sick as well, with similar cough on and off. He was living in [place] 2 years before starting in [facility]. No history of TB. He's update with his immunizations. Patient denied been sexually active, denied any smoking, or alcohol use. Chest CT: with nodular opacifications in the right upper lobe with multiples renetta of cavitations and hilar adenopathy. No PE. WBC with no leukocytosis, no left shift. Hgb 11.7. chemistry normal. Liver enzymes without signs of inflammations. Biofire negative. Admission Exam Per Admitting Provider Constitutional: well developed and well nourished; no acute distress Eyes: PERRL, conjunctivae normal, anicteric sclerae Respiratory: normal respiratory effort, lungs clear to auscultation Cardiovascular: RRR, no murmur, no edema Gastrointestinal (Abdomen): normal bowel sounds, soft, nontender, no hepatosplenomegaly Skin: no rashes, warm and dry Psychiatric: A+Ox3, euthymic affect Principal Diagnosis Active TB infection, RUL cavitations Discharge Exam General: patient resting comfortably, NAD, non-toxic in appearance, answers questions appropriately. Mildly sweaty and fatigued Skin: warm, dry, intact HEENT: NC/AT, anicteric sclera, conjunctiva without injection, moist mucus membranes. Heart: +S1/S2, regular, no m/r/g Lungs: equal air entry bilaterally, no rales/rhonchi/wheezes Abd: +BS, soft, NT/ND Ext: warm, no clubbing/cyanosis or edema Neuro: nonfocal, speech intact, no facial droop, moving all extremities. Discharge Data Allergies Allergy/AdvReac Type Severity Reaction Status Date / Time No Known Allergies Allergy Verified 06/26/25 16:52 Consultations 06/26/25 20:02 ED Decision to Admit Stat 06/27/25 00:02 Consult Pulmonology Routine 06/27/25 07:31 Consult Infectious Diseases Routine Ordered Studies 06/26/25 16:52 CT angio chest PE protocol Stat Hospital Course (1) Hemoptysis: (2) Cavitary lesion of lung: (3) Tuberculosis: Dilcia Kay is a 20 y/o male with no past significant medical history that presented to the ED due to worsening cough and hemoptysis. Patient states having influenza a month ago when the cough started. A week ago he was diagnosed with Pneumonia and got teated with Doxycycline (last dose 06/25) by [facility]. He states yesterday he had an episode of cough that was slight red. Today he states was coughing bright blood. He states having chills some days. Denied any weight loss. He recently travelled to [place] to visit family. He states his roommate had been sick as well, with similar cough on and off. He was living in [place] 2 years before starting in [facility]. No history of TB. He's update with his immunizations. Patient denied been sexually active, denied any smoking, or alcohol use. Chest CT: with nodular opacifications in the right upper lobe with multiples renetta of cavitations and hilar adenopathy. No PE. WBC with no leukocytosis, no left shift. Hgb 11.7. chemistry normal. Liver enzymes without signs of inflammations. Biofire negative. Patient will be admitted for further workup and antibiotic therapy Hemoptysis/Cavitary lesions: Condition improving, fatigue and lack of appetite improved. Patient would like to ambulate and excercise within his room and feels well enough to do so w/o fevers, chills, or sweats. - Patient with cough for more than a month and hemoptysis. Chills. Recent travel to [place] - CT chest: right lobe nodular opacifications, and cavitations, + hilar adenopathy. No PE - Differential diagnosis include tuberculosis, fungal infection, S. aureus infection - Bio fire negative. no leukocytosis. stable Hgb - Sputum culture ordered with acid fast stain - QuantiFERON gold test ordered and positive: Does not differentiate between past, latent, and active TB or other fungal causes - Isolations: droplets and airborne - Vancomycin and Zosyn d/c for RIPE therapy, hospital will f/u with [facility] to determine d/c and isolation precautions - Pulmonology and ID consulted recs as follows - Avoid bronchoscopy for now due to risk of potential active TB infection contamination/spread - Acid fast sputum and culture stains Q8H x3 ordered, will await results stains will continue to be monitored for 6 weeks - Acid fast stains positive for moderate acid-fast bacilli and will continue to be followed for cultures/sensitivities - TB PCR sputum sent and pending - Coccidioides, Histoplasma, Cryptococcal, aspergillus labs pending - Patient d/c after notifying [facility] and [facility], isolation room setup, medically stable with improving fatigue, appetite, hemoptysis and afebrile for 48 hours DVT prophylaxis: ambulation, low risk Dipos: Med/ Telemetry - isolations precautions Total Time Total Time Spent Total Time Spent (In Minutes): <30 Discharge Plan Discharge Items Patient Disposition: Home - Self-Care Reason For Visit: PNEMONIA, HEMOPTYSIS Discharge Diagnosis: Active TB infection, RUL cavitary lesions Condition on Discharge: Fair Activity: Per Instructions section Non-emergency contact: Primary Care Provider Call non-emergency contact if: you have any medication questions, your symptoms worsen and your pain is not controlled Follow-up/Referrals: [facility] [Primary Care Provider] - Diet: Regular Addtl Attending Provider Instructions: You were admitted to [facility] due to a respiratory illness occurring for approximately 1 month and were hospitalized when you started coughing blood. At this time a chest CT was completed that showed R. upper lobe cavitary lesions sparing the rest of the right lung and without infiltration of the L. lung. Each day that Derek has been admitted he has felt better, with improvements in fatigue, appetite, night sweats and without fevers for 48 hours. Derek will be discharged under the guidance of the [facility], who have been working with Derek, family, and [facility] to set up an isolation room and medications to be taken to clear this infection. We have also taken sputum samples that are awaiting culture results and antibiotic sensitivity data, as tuberculosis is a very slow growing organism, we will continue to watch these cultures to determine if the bacteria grown is sensitive to all medications and confirm that the growth is tuberculosis without any other pathogens present. If any of the pathogens tested were to show up positive, the department of health will be notified and antibiotics can be modified to control the bacteria present in the lungs. Patient is medically stable for discharge. A few medications such as vitamin B6 (Pyrazinamide), Lactobacillus acidophilus (probiotic), and Pyridoxine (for burning with urination) will be provided to make sure that Derek has adequate vitamin coverage and probiotic coverage while receiving a long course of medication treatment. We recommend taking a uber to your housing that has been set up. Please keep the windows in the back of the car rolled down and make sure to wear masks, and also we will encourage the uber local company flatbed truck driver to wear a mask as well. These are precautions to prevent spread of infection. Pending Studies at Discharge: No Stand-Alone Forms: My [facility], Work/School Release, Smoking Cessation Medications and DC Order Prescriptions: New Lactobacillus acidophilus 700 million cell capsule 1,200 mg PO DAILY Qty: 90 0RF pyrazinamide 500 mg tablet 2,000 mg PO DAILY Qty: 90 0RF pyridoxine (vitamin B6) 50 mg capsule 50 mg PO DAILY Qty: 90 0RF Continued minoxidil 2.5 mg Tablet 0 mg PO DIRECTED Rx Instructions: PT UNSURE OF STRENGTH, UNABLE TO VERIFY finasteride 1 mg Tablet 0 mg PO DIRECTED Rx Instructions: PT UNSURE OF STRENGTH, UNABLE TO VERIFY Discharge Orders: Discharge Order (Routine); Ordered 07/02/25 Ordered By: Ruiz Hopson Admission Data Admit Date/Time: 06/26/25 20:25 Attending Provider: Diego Sanford Admit Provider: Patel Riley Primary Care Provider: [facility] Other Providers: Patel Riley; Paz Rodriguez Tiffany G.; Faith Abebe; Sandra Bonilla Antonie J.; Ade Goldberg; Kavitha Hill Other Interventions: Discharge Summary Assessment (RN) Last Done: 07/02/25 16:40 Supervising Physician Co-Signing Physician Notes I personally examined the patient and verified all gonzalez points of history and exam, discussed case, and agree with decision making with Dr Hopson Still coughing. Feels okay to go home. Everything appears to be set up through [facility] and the Department of Health. Mom present, updated extensively as well. Vitals noted, in general he is awake and alert pleasant no distress, does have a coughing fit while I am talking to him. Breathing unlabored no accessory muscle use good effort. Skin without rashes pallor or icterus. Neuro without focal deficits. Active tuberculosis hemoptysis cavitary lung lesion possible sepsis early in hospital stay/present on admission (as evidenced by his heart rate and temperature within first 24 hours of admission) doing better/stable for discharge. Care and follow-up coordinated through Department of Health. Otherwise as above. Resident Activity Tracking Resident Involvement: Resident Care Provided Care Provided: Adult Hospital Medicine
[2025-07-02 16:41] VITALS: BP 106/71
--- NOTE | 2025-07-02 17:13 | Billing Data ---
Date of Service July 02, 2025 Coding Level of Care Code 73753 IN/OBS DISCH 30 MIN/LESS
[2025-07-03 12:13] LABS: Reference Quest Test 1 REPORT; Reference Quest Test 2 REPORT
[2025-07-03 23:13] LABS: Aspergillus Antigen, Serum Not Detected (Not Detected); Coccidioides Ab, ID Negative (Negative); Histoplasma H Band Ab Negative (Negative); Histoplasma M Band Ab Negative (Negative); Source Serum
== END 2025-07-02 17:19 | disposition home or self-care (01) | DRG 872 ==
LOC: ED 16:28 → 2E 20:25 → SUATTDRO 20:25 → 2E 23:42